=== PATIENT | female | born 1965 | race Caucasian/White ===

== ENCOUNTER → 2016-09-08 | Outpatient (CLI) | payer BC ==
--- NOTE | 2016-09-09 08:35 | MM ---
Reason for exam: screening (asymptomatic). Last mammogram was performed 1 year and 2 months ago. History: Patient is postmenopausal. Physical Findings: A clinical breast exam by your physician is recommended on an annual basis and results should be correlated with mammographic findings. MG Screening Mammo w CAD Bilateral CC and MLO view(s) were taken. Prior study comparison: July 11, 2015, bilateral MG screening mammo w CAD. March 06, 2014, bilateral MG screening mammo w CAD. March 02, 2013, bilateral digital screening mammo w/CAD. There are scattered fibroglandular densities. There is no discrete abnormality. ASSESSMENT: Negative, BI-RAD 1 RECOMMENDATION: Routine screening mammogram of both breasts in 1 year.
== END | disposition home or self-care (01) ==
LOC: RADMAMWWP 13:50
PROVIDERS: ATTEND Internal Medicine
DX: Z12.31 Encounter for screening mammogram for malignant neoplasm of breast (principal)

== ENCOUNTER → 2017-02-12 | Outpatient (CLI) | payer BC ==
--- NOTE | 2017-02-12 15:56 | XR ---
EXAMINATION TYPE: XR finger LT DATE OF EXAM: 02/12/2017 COMPARISON: NONE HISTORY: Pain in the proximal interphalangeal joint after catching injury on a car door yesterday TECHNIQUE: Frontal and lateral radiographs were obtained of the left fifth digit. FINDINGS: There is no evidence of acute fracture or dislocation. Soft tissue swelling is seen circumf erentially of the fifth digit overlying the proximal phalanx and middle phalanx. Osseous mineralizati on is within normal limits. No subcutaneous emphysema. No radiopaque foreign body. IMPRESSION: Soft tissue swelling of the left fifth digit without acute fracture or dislocation.
== END ==
LOC: RADXRYALE 15:29
PROVIDERS: ATTEND Internal Medicine
DX: M79.89 Other specified soft tissue disorders (principal)

== ENCOUNTER → 2017-10-08 | Outpatient (CLI) | payer BC ==
--- NOTE | 2017-10-09 12:06 | MM ---
Reason for exam: screening (asymptomatic). Last mammogram was performed 1 year and 1 month ago. History: Patient is postmenopausal. Physical Findings: A clinical breast exam by your physician is recommended on an annual basis and results should be correlated with mammographic findings. MG Screening Mammo w CAD Bilateral CC and MLO view(s) were taken. Prior study comparison: September 08, 2016, bilateral MG screening mammo w CAD. July 11, 2015, bilateral MG screening mammo w CAD. There are scattered fibroglandular densities. No significant changes when compared with prior studies. ASSESSMENT: Benign, BI-RAD 2 RECOMMENDATION: Routine screening mammogram of both breasts in 1 year.
== END | disposition home or self-care (01) ==
LOC: RADMAMWWP 11:03
PROVIDERS: ATTEND Internal Medicine
DX: Z12.31 Encounter for screening mammogram for malignant neoplasm of breast (principal)
CPT/HCPCS: 77067

== ENCOUNTER 2018-10-08 03:17 | Inpatient (IN) | payer BC ==
[2018-10-08 04:02] LABS: Basophils % (A) 0 %; Eosinophils # (A) 0.1 k/uL (0-0.7); Eosinophils % (A) 1 %; HCT 46.7 % (34.0-46.0); HGB 15.1 gm/dL (11.4-16.0); Lymphocytes # (A) 1.2 k/uL (1.0-4.8); Lymphocytes % (A) 8 %; MCH 26.7 pg (25.0-35.0); MCHC 32.4 g/dL (31.0-37.0); MCV 82.4 fL (80.0-100.0); Mean Platelet Volume 6.5; Monocytes # (A) 0.4 k/uL (0-1.0); Monocytes % (A) 3 %; Neutrophils # (A) 13.6 k/uL (1.3-7.7); Neutrophils % (A) 88 %; Platelet Count 365 k/uL (150-450); RBC 5.67 m/uL (3.80-5.40); RDW 14.2 % (11.5-15.5); WBC 15.4 k/uL (3.8-10.6)
[2018-10-08 04:03] LABS: Appearance,Urine Cloudy (Clear); Bilirubin,Urine Negative (Negative); Blood,Urine Trace (Negative); Color,Urine Yellow; Glucose,Urine (UA) Negative (Negative); Hyaline Casts,Urine 12 /lpf (0-2); Ketones,Urine Negative (Negative); Leukocyte Esterase,Urine Negative (Negative); Mucus,Urine Rare /hpf; Nitrite,Urine Negative (Negative); Protein,Urine 1+ (Negative); RBC,Urine <1 /hpf (0-5); Specific Gravity,Urine 1.019 (1.001-1.035); Squamous Epithelial Cell,Urine 3 /hpf (0-4); WBC,Urine 2 /hpf (0-5)
[2018-10-08 04:13] LABS: ALT 113 U/L (9-52); AST 129 U/L (14-36); Albumin 4.6 g/dL (3.5-5.0); Alkaline Phosphatase 112 U/L (38-126); Anion Gap 12 mmol/L; Blood Urea Nitrogen 14 mg/dL (7-17); Calcium 9.7 mg/dL (8.4-10.2); Carbon Dioxide 24 mmol/L (22-30); Chloride 101 mmol/L (98-107); Glucose 184 mg/dL (74-99); Potassium 4.6 mmol/L (3.5-5.1); Sodium 137 mmol/L (137-145); Total Bilirubin 1.3 mg/dL (0.2-1.3); Total Protein 8.5 g/dL (6.3-8.2)
--- NOTE | 2018-10-08 04:13 | XR ---
EXAM: XR Abdomen, 1 View CLINICAL HISTORY: ITS.REASON XR Reason: abdominal pain TECHNIQUE: Frontal supine view of the abdomen/pelvis. COMPARISON: No relevant prior studies available. FINDINGS: Gastrointestinal tract: Unremarkable. No dilation. Bones/joints: No acute fracture. No dislocation. IMPRESSION: Normal abdominal x-ray.
[2018-10-08] MEDS ORDERED: ONDANSETRON 4 MG/2 ML VIAL IVP STA (04:25)
[2018-10-08] MEDS ORDERED: MORPHINE SULFATE 4 MG/ML SYRINGE IVP STA (04:25)
[2018-10-08] MEDS ORDERED: SODIUM CHLORIDE 0.9% 1,000 ML IV ONE ×2 (04:25→04:44)
--- NOTE | 2018-10-08 04:26 | ED ---
Abdominal Pain HPI - General Chief Complaint: Abdominal Pain Stated Complaint: back/abd pain Time Seen by Provider: 10/08/18 03:44 Source: patient Mode of arrival: ambulatory Limitations: no limitations - History of Present Illness Initial Comments: Hilaria is a pleasant 53-year-old female presents to the emergency department today for evaluation of nausea vomiting abdominal pain. Patient reports that throughout the day today she felt nauseated and unwell however around dinner time she decided that she should try to eat so [facility] and patient reports after eating she developed worsening nausea and had multiple episodes of nonbloody nonbilious emesis. Despite vomiting she continued feel nauseated and was having dry heaving at which time she decided to come the emergency department for evaluation. Patient reports she had a normal bowel movement earlier in the day. She has no history of any GI pathology or previous GI surgeries. No history of bowel obstructions or pancreatitis. - Related Data Home Medications Medication Instructions Recorded Confirmed Oxybutynin Chloride [Oxybutynin 5 mg PO HS 08/06/15 10/08/18 Chloride ER] Aspirin EC [Ecotrin Low Dose] 81 mg PO HS 10/08/18 10/08/18 Citalopram Hydrobromide [CeleXA] 20 mg PO HS 10/08/18 10/08/18 Lisinopril [Zestril] 20 mg PO HS 10/08/18 10/08/18 Magnesium 200 mg PO HS 10/08/18 10/08/18 Allergies Allergy/AdvReac Type Severity Reaction Status Date / Time Tetracyclines Allergy Unknown Verified 10/08/18 06:44 Review of Systems ROS Statement: Those systems with pertinent positive or pertinent negative responses have been documented in the HPI. ROS Other: All systems not noted in ROS Statement are negative. Past Medical History Past Medical History: Hypertension History of Any Multi-Drug Resistant Organisms: None Reported Past Surgical History: Section Additional Past Surgical History / Comment(s): UTERINE ABLATION, D&C, tumor removed from right flank Past Psychological History: Anxiety Smoking Status: Never smoker Past Alcohol Use History: None Reported Past Drug Use History: None Reported General Exam - General Exam Comments Initial Comments: Physical Exam GENERAL: Patient is well-developed and well-nourished. Patient is nontoxic and well-hydrated, looks uncomfortable HENT: Normocephalic, Atraumatic. EYES: PERRL, EOMI PULMONARY: Unlabored respirations. No audible rales rhonchi or wheezing was noted. CARDIOVASCULAR: There is a regular rate and rhythm without any murmurs gallops or rubs. ABDOMEN: Soft and nontender with hypoactive bowel sounds. Non-peritoneal SKIN: Skin is clear with no lesions or rashes and otherwise unremarkable. : Deferred NEUROLOGIC: Patient is alert and oriented x3. Moving all extremities spontaneously MUSCULOSKELETAL: Normal extremities with adequate strength and full range of motion. No lower extremity swelling or edema. No calf tenderness. PSYCHIATRIC: Normal psychiatric evaluation. Limitations: no limitations Limitations: no limitations Course Vital Signs 10/08/18 10/08/18 03:25 07:21 Temperature 98.1 F Pulse Rate 88 84 Respiratory 20 16 Rate Blood Pressure 138/94 171/84 O2 Sat by Pulse 97 95 Oximetry Medical Decision Making - Medical Decision Making Patient was seen and evaluated history was obtained from the patient and at bedside Patient with full day of nausea and development of nonbloody nonbilious emesis after eating fast food On initial evaluation the patient appears uncomfortable however she reports she's thirsty and would like to try some ice chips and water Labs imaging fluids Zofran and morphine were ordered She declined morphine seen that it makes her hallucinate would prefer something more gentle like aspirin Labs resulted with findings considering for acute pancreatitis these results were discussed with the patient I encouraged her to take Dilaudid for pain management and advised her that she will be admitted to the hospital for this after further imaging CT scan concerning for acute pancreatitis with no definitive dilatation of the common bile duct although the gallbladder is full of stones Ultrasound was completed, the time of admission results with ultrasound were still pending though, bile duct measurements appeared within normal limits admitted for acute pancreatitis with consults to gastroenterology placed. - Lab Data Result diagrams: 10/08/18 03:52 10/08/18 03:52 Lab Results 10/08/18 10/08/18 10/08/18 Range/Units 03:46 03:52 03:52 WBC 15.4 H (3.8-10.6) k/uL RBC 5.67 H (3.80-5.40) m/uL Hgb 15.1 (11.4-16.0) gm/dL Hct 46.7 H (34.0-46.0) % MCV 82.4 (80.0-100.0) fL MCH 26.7 (25.0-35.0) pg MCHC 32.4 (31.0-37.0) g/dL RDW 14.2 (11.5-15.5) % Plt Count 365 (150-450) k/uL Neutrophils % 88 % Lymphocytes % 8 % Monocytes % 3 % Eosinophils % 1 % Basophils % 0 % Neutrophils # 13.6 H (1.3-7.7) k/uL Lymphocytes # 1.2 (1.0-4.8) k/uL Monocytes # 0.4 (0-1.0) k/uL Eosinophils # 0.1 (0-0.7) k/uL Basophils # 0.0 (0-0.2) k/uL Sodium 137 (137-145) mmol/L Potassium 4.6 (3.5-5.1) mmol/L Chloride 101 (98-107) mmol/L Carbon Dioxide 24 (22-30) mmol/L Anion Gap 12 mmol/L BUN 14 (7-17) mg/dL Creatinine 0.68 (0.52-1.04) mg/dL Est GFR (CKD-EPI)AfAm >90 (>60 ml/min/1.73 sqM) Est GFR (CKD-EPI)NonAf >90 (>60 ml/min/1.73 sqM) Glucose 184 H (74-99) mg/dL Calcium 9.7 (8.4-10.2) mg/dL Total Bilirubin 1.3 (0.2-1.3) mg/dL AST 129 H (14-36) U/L ALT 113 H (9-52) U/L Alkaline Phosphatase 112 (38-126) U/L Total Protein 8.5 H (6.3-8.2) g/dL Albumin 4.6 (3.5-5.0) g/dL Amylase 1933 H* (30-110) U/L Lipase >04933 H (23-300) U/L Urine Color Yellow Urine Appearance Cloudy H (Clear) Urine pH 5.0 (5.0-8.0) Ur Specific [place] 1.019 (1.001-1.035) Urine Protein 1+ H (Negative) Urine Glucose (UA) Negative (Negative) Urine Ketones Negative (Negative) Urine Blood Trace H (Negative) Urine Nitrite Negative (Negative) Urine Bilirubin Negative (Negative) Urine Urobilinogen 3.0 (<2.0) mg/dL Ur Leukocyte Esterase Negative (Negative) Urine RBC <1 (0-5) /hpf Urine WBC 2 (0-5) /hpf Ur Squamous Epith Cells 3 (0-4) /hpf Hyaline Casts 12 H (0-2) /lpf Urine Mucus Rare H (None) /hpf Disposition Clinical Impression: Acute pancreatitis Disposition: ADMITTED IP TO THIS HOSP Condition: Serious Is patient prescribed a controlled substance at d/c from ED?: No Referrals: Raysa Dotson MD [Primary Care Provider] - 1-2 days
[2018-10-08 04:38] LABS: Amylase 1933 U/L (30-110); Lipase >20000 U/L (23-300)
--- NOTE | 2018-10-08 06:11 | CT ---
EXAM: CT Abdomen and Pelvis With Intravenous Contrast CLINICAL HISTORY: ITS.REASON CT Reason: Pain, pancreatitis TECHNIQUE: Axial computed tomography images of the abdomen and pelvis with intravenous contrast. Pancreatitis protocol used. DLP is 2165.2 mGy-cm. This CT exam was performed using one or more of the following dose reduction techniques: automated exposure control, adjustment of the mA and/or kV according to patient size, and/or use of iterative reconstruction technique. COMPARISON: Plain film abdomen same date. No other priors. FINDINGS: Arterial phase imaging of the abdomen along with portal venous imaging of the abdomen and pelvis. Suboptimal arterial bolus on arterial phase imaging. Atelectasis. Possible right lower lobe nodule measuring about 6 mm size versus focus of atelectasis and/or scar image . Small hiatal hernia. There is some fluid in the esophagus which may represent reflux. There is peripancreatic infiltration/fluid with fluid layering over retroperitoneum compatible with acute pancreatitis. Cholelithiasis. No calcified choledocholithiasis. No pseudocyst or evidence for pancreatic necrosis. Hepatomegaly with suspected steatosis. Borderline splenomegaly with spleen about 13 cm on axials. 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 There is some hypodensity in region of lower uterine segment extending to region of cervix/superior vaginal cuff. May represent fluid in the endometrial/endocervical canal. Right adnexal cyst measuring about 2.4 cm. Smaller suspected left ovarian follicles. No evidence for appendicitis. No bowel obstruction. Portions of bowel underdistended limiting evaluation for wall thickening. Diverticulosis. No diverticulitis. Possible reactive mural thickening of bowel adjacent to the pancreas, example portions stomach and duodenum. Fat-containing ventral and umbilical hernias. Osseous degenerative changes. IMPRESSION: Findings compatible with acute pancreatitis. Cholelithiasis and other findings, as discussed above.
[2018-10-08] MEDS ORDERED: HYDROmorphone 0.5 MG/0.5 ML SYRINGE IVP STA (06:28)
[2018-10-08] MEDS ORDERED: NALOXONE 0.4 MG/ML 1 ML VIAL IV PRN (06:29)
[2018-10-08] MEDS ORDERED: HYDROmorphone 0.5 MG/0.5 ML SYRINGE IVP PRN (06:29)
[2018-10-08] MEDS: SODIUM CHLORIDE 0.9% 1,000 ML IV SCH ×4 (06:36→22:58)
--- NOTE | 2018-10-08 08:13 | US ---
EXAMINATION TYPE: US gallbladder DATE OF EXAM: 10/08/2018 COMPARISON: NONE CLINICAL HISTORY: Pain, transaminitis, pancreatitis. abd pain with vomiting, patient states these sym ptoms have happened over the past few years EXAM MEASUREMENTS: Liver Length: 18.3 cm Gallbladder Wall: 0.3 cm CBD: 0.5 cm Right Kidney: 9.7 x 4.9 x 4.2 cm *limited exam due to habitus and bowel gas Pancreas: not seen due to reasons stated above Liver: difficult to penetrate, upper limits of normal for size, intercostal views only Gallbladder: multiple stones seen, unable to assess mobility of them, wall borderline thick Evidence for sonographic Smith's sign: yes CBD: limited views appear wnl Right Kidney: limited views appear wnl IMPRESSION: Suboptimal exam due to patient body habitus and overlying bowel gas. 1. Gallbladder appears filled with gallstones although mobility of the gallstones is not well appreci ated. No dilated common bile duct or discrete pericholecystic fluid to suggest acute cholecystitis. H owever the patient describes a positive Smith's sign. Correlate with serum laboratory values. 2. Sonographic findings suggest moderate degree hepatic steatosis. 3. In this patient with known pancreatitis the pancreas is obscured. If there is further concern for sequela of pancreatitis CT could be performed.
[2018-10-08] MEDS: ONDANSETRON 4 MG/2 ML VIAL IVP PRN ×3 (10:50→22:57)
[2018-10-08 13:14] LABS: Glucose,Whole Blood 121 mg/dL (75-99)
[2018-10-08] MEDS: PANTOPRAZOLE 40 MG/10 ML VIAL IVP SCH (13:18)
--- NOTE | 2018-10-08 15:42 | P.HPIM ---
History of Present Illness 53-year-old pleasant female came in with complains of epigastric abdominal pain radiating to the back severe 10/10 in severity associated with nausea vomiting multiple episodes. Patient is in found to have highly elevated lipase and amylase. Patient has nonbilious emesis. Patient also has cholelithiasis without any evidence of cholecystitis patient pain is better now with pain going down to 6/10 in severity patient's pain is a sharp in nature. Patient does have elevated liver enzymes although there is no evidence of cortical metastasis an ultrasound or CAT scan. She denied any significant alcohol history Review of Systems REVIEW OF SYSTEMS: CONSTITUTIONAL: No fever, no malaise, no fatigue. HEENT: No recent visual problems or hearing problems. Denied any sore throat. CARDIOVASCULAR: No chest pain, orthopnea, PND, no palpitations, no syncope. PULMONARY: No shortness of breath, no cough, no hemoptysis. GASTROINTESTINAL: As mentioned in HPI NEUROLOGICAL: No headaches, no weakness, no numbness. HEMATOLOGICAL: Denies any bleeding or petechiae. GENITOURINARY: Denies any burning micturition, frequency, or urgency. MUSCULOSKELETAL/RHEUMATOLOGICAL: Denies any joint pain, swelling, or any muscle pain. ENDOCRINE: Denies any polyuria or polydipsia. The rest of the 14-point review of systems is negative. Past Medical History Past Medical History: Hypertension Additional Past Medical History / Comment(s): Multiple bilateral ear infections, bilateral tinnitis, anemia, migraines History of Any Multi-Drug Resistant Organisms: None Reported Past Surgical History: Section, Tubal Ligation, Uterine Ablation Additional Past Surgical History / Comment(s): D&C'S, lipoma removed from right flank Past Anesthesia/Blood Transfusion Reactions: No Reported Reaction, Motion Sickness Smoking Status: Never smoker - Past Family History Father Family Medical History: Cancer Additional Family Medical History / Comment(s): Father is . He had esophageal cancer. Mother Family Medical History: Myocardial Infarction ([place]) Additional Family Medical History / Comment(s): Mother was a heavy smoker. She from a [place] at the age of 66yrs. Medications and Allergies Home Medications Medication Instructions Recorded Confirmed Type Oxybutynin Chloride [Oxybutynin 5 mg PO HS 08/06/15 10/08/18 History Chloride ER] Aspirin EC [Ecotrin Low Dose] 81 mg PO HS 10/08/18 10/08/18 History Citalopram Hydrobromide [CeleXA] 20 mg PO HS 10/08/18 10/08/18 History Lisinopril [Zestril] 20 mg PO HS 10/08/18 10/08/18 History Magnesium 200 mg PO HS 10/08/18 10/08/18 History Allergies Allergy/AdvReac Type Severity Reaction Status Date / Time Tetracyclines Allergy Unknown Verified 10/08/18 06:44 Physical Exam Vitals: Vital Signs Temp Pulse Resp BP Pulse Ox 10/08/18 07:21 84 16 171/84 95 10/08/18 03:25 98.1 F 88 20 138/94 97 Intake and Output 10/08/18 10/08/18 10/08/18 06:59 14:59 22:59 Intake Total 1000 Balance 1000 Intake: Intake, IV Titration 1000 Amount Sodium Chloride 0.9% 1, 1000 000 ml @ 125 mls/hr IV . Q8H [facility] Rx#:[id number] Other: Weight 127.006 kg PHYSICAL EXAMINATION: GENERAL: The patient is alert and oriented x3, not in any acute distress. Well developed, well nourished. HEENT: Pupils are round and equally reacting to light. EOMI. No scleral icterus. No conjunctival pallor. Normocephalic, atraumatic. No pharyngeal erythema. No thyromegaly. CARDIOVASCULAR: S1 and S2 present. No murmurs, rubs, or gallops. PULMONARY: Chest is clear to auscultation, no wheezing or crackles. ABDOMEN: Epigastric abdominal tenderness mild no significant right upper quadrant tenderness did not believe patient has Smith's sign that is positive MUSCULOSKELETAL: No joint swelling or deformity. EXTREMITIES: No cyanosis, clubbing, or pedal edema. NEUROLOGICAL: Gross neurological examination did not reveal any focal deficits. SKIN: No rashes. Results CBC & Chem 7: 10/08/18 03:52 10/08/18 03:52 Labs: Abnormal Lab Results - Last 24 Hours (Table) 10/08/18 10/08/18 10/08/18 Range/Units 03:46 03:52 03:52 WBC 15.4 H (3.8-10.6) k/uL RBC 5.67 H (3.80-5.40) m/uL Hct 46.7 H (34.0-46.0) % Neutrophils # 13.6 H (1.3-7.7) k/uL Glucose 184 H (74-99) mg/dL POC Glucose (mg/dL) (75-99) mg/dL AST 129 H (14-36) U/L ALT 113 H (9-52) U/L Total Protein 8.5 H (6.3-8.2) g/dL Amylase 1933 H* (30-110) U/L Lipase >92405 H (23-300) U/L Urine Appearance Cloudy H (Clear) Urine Protein 1+ H (Negative) Urine Blood Trace H (Negative) Hyaline Casts 12 H (0-2) /lpf Urine Mucus Rare H (None) /hpf 10/08/18 Range/Units 13:11 WBC (3.8-10.6) k/uL RBC (3.80-5.40) m/uL Hct (34.0-46.0) % Neutrophils # (1.3-7.7) k/uL Glucose (74-99) mg/dL POC Glucose (mg/dL) 121 H (75-99) mg/dL AST (14-36) U/L ALT (9-52) U/L Total Protein (6.3-8.2) g/dL Amylase (30-110) U/L Lipase (23-300) U/L Urine Appearance (Clear) Urine Protein (Negative) Urine Blood (Negative) Hyaline Casts (0-2) /lpf Urine Mucus (None) /hpf Thrombosis Risk Factor Assmnt - Choose All That Apply Any of the Below Risk Factors Present?: Yes Each Factor Represents 1 point: Age 41-60 years, Obesity (BMI >25) Other Risk Factors: No Other congenital or acquired thrombophilia - If yes, enter type in comment: No Thrombosis Risk Factor Assessment Total Risk Factor Score: 2 Thrombosis Risk Factor Assessment Level: Low Risk Assessment and Plan Plan: -Gallstone pancreatitis: Patient will be nothing by mouth IV fluids will be continued but will cut down from 200-1 25 mL/h. General surgery was consulted will need the cholecystectomy once his pancreatitis improves. Because of elevated liver enzymes gastro-enterology was consulted next and have an elevated liver enzymes probably secondary to passed gallstones there is no evidence of to choledicholithiasis, repeat liver enzymes tomorrow. -Elevated liver enzymes due to above-mentioned reasons -Leukocytosis secondary to pancreatitis -Hypertension -anxiety and depression Patient will need pharmacologic GI and DVT prophylaxis
[2018-10-08] MEDS: HEPARIN SODIUM,PORCINE 5,000 UNIT/ML 1 ML VIAL SQ SCH ×2 (17:01→22:57)
[2018-10-08] MEDS: TEMAZEPAM 15 MG CAP PO PRN (20:02)
[2018-10-08] MEDS: LISINOPRIL 20 MG TAB PO SCH (20:12)
[2018-10-08] MEDS: OXYBUTYNIN XL 5 MG TAB.ER.24 PO SCH (20:12)
[2018-10-08] MEDS: CITALOPRAM HYDROBROMIDE 20 MG TAB PO SCH (20:12)
[2018-10-08 21:32] LABS: Glucose,Whole Blood 104 mg/dL (75-99)
[2018-10-09] MEDS: SODIUM CHLORIDE 0.9% 1,000 ML IV SCH ×4 (05:36→22:54)
[2018-10-09] MEDS: ONDANSETRON 4 MG/2 ML VIAL IVP PRN ×3 (05:38→18:30)
[2018-10-09] MEDS: HYDROmorphone 0.5 MG/0.5 ML SYRINGE IVP PRN ×7 (05:38→22:53)
[2018-10-09 07:05] LABS: Glucose,Whole Blood 121 mg/dL (75-99)
[2018-10-09] MEDS: HEPARIN SODIUM,PORCINE 5,000 UNIT/ML 1 ML VIAL SQ SCH ×3 (08:28→22:53)
[2018-10-09] MEDS: PANTOPRAZOLE 40 MG/10 ML VIAL IVP SCH (08:28)
[2018-10-09 08:46] LABS: HCT 40.7 % (34.0-46.0); HGB 13.2 gm/dL (11.4-16.0); MCH 26.7 pg (25.0-35.0); MCHC 32.6 g/dL (31.0-37.0); Mean Platelet Volume 6.8; Platelet Count 383 k/uL (150-450); RBC 4.96 m/uL (3.80-5.40); RDW 14.4 % (11.5-15.5); WBC 18.5 k/uL (3.8-10.6)
[2018-10-09 08:58] LABS: ALT 91 U/L (9-52); AST 46 U/L (14-36); Albumin 3.8 g/dL (3.5-5.0); Alkaline Phosphatase 78 U/L (38-126); Anion Gap 8 mmol/L; Blood Urea Nitrogen 7 mg/dL (7-17); Calcium 8.8 mg/dL (8.4-10.2); Carbon Dioxide 23 mmol/L (22-30); Chloride 106 mmol/L (98-107); Glucose 119 mg/dL (74-99); Lipase 1112 U/L (23-300); Sodium 137 mmol/L (137-145); Total Protein 7.3 g/dL (6.3-8.2)
[2018-10-09 11:29] LABS: Glucose,Whole Blood 104 mg/dL (75-99)
--- NOTE | 2018-10-09 14:15 | P.GSCN ---
History of Present Illness Consult date: 10/09/18 History of present illness: 53-year-old female presented to the emergency department with complaints of abdominal pain that began over the 24 hours prior to her arrival. She describes the pain in his a burning sensation in her epigastrium and upper back. She also complains of pain on the right side of her abdomen. She also complains of abdominal distention. She was having nausea and emesis episodes previously, but no longer is having any nausea. She denies having any flatus or bowel movements since her admission. She denies having an episode like this previously. On workup in the emergency department, the patient was found to have gallstones and an extremely elevated lipase along with peripancreatic edema. The patient denies any significant alcohol use. She has no additional complaints at this time. She states her only previous abdominal surgery are C-sections. Review of Systems All systems: negative Past Medical History Past Medical History: Hypertension Additional Past Medical History / Comment(s): Multiple bilateral ear infections, bilateral tinnitis, anemia, migraines History of Any Multi-Drug Resistant Organisms: None Reported Past Surgical History: Section, Tubal Ligation, Uterine Ablation Additional Past Surgical History / Comment(s): D&C'S, lipoma removed from right flank Past Anesthesia/Blood Transfusion Reactions: No Reported Reaction, Motion Sickness Smoking Status: Never smoker - Past Family History Father Family Medical History: Cancer Additional Family Medical History / Comment(s): Father is . He had esophageal cancer. Mother Family Medical History: Myocardial Infarction ([place]) Additional Family Medical History / Comment(s): Mother was a heavy smoker. She from a [place] at the age of 66yrs. Medications and Allergies Home Medications Medication Instructions Recorded Confirmed Type Oxybutynin Chloride [Oxybutynin 5 mg PO HS 08/06/15 10/08/18 History Chloride ER] Aspirin EC [Ecotrin Low Dose] 81 mg PO HS 10/08/18 10/08/18 History Citalopram Hydrobromide [CeleXA] 20 mg PO HS 10/08/18 10/08/18 History Lisinopril [Zestril] 20 mg PO HS 10/08/18 10/08/18 History Magnesium 200 mg PO HS 10/08/18 10/08/18 History Allergies Allergy/AdvReac Type Severity Reaction Status Date / Time Tetracyclines Allergy Unknown Verified 10/08/18 06:44 Surgical - Exam Osteopathic Statement: *. No significant issues noted on an osteopathic structural exam other than those noted in the History and Physical/Consult. Vital Signs Temp Pulse Resp BP Pulse Ox 98.1 F 88 20 138/94 97 10/08/18 03:25 10/08/18 03:25 10/08/18 03:25 10/08/18 03:25 10/08/18 03:25 - General well nourished, no distress - Eyes PERRL - ENT normal mucosa - Neck trachea midline - Respiratory normal respiratory effort - Abdomen Soft, tenderness to the epigastrium and right upper quadrant, moderate distention, no rebound, no guarding - Psychiatric oriented to time, oriented to person, oriented to place Results - Labs 10/09/18 08:31 10/09/18 08:31 Abnormal Lab Results - Last 24 Hours (Table) 10/08/18 10/09/18 10/09/18 Range/Units 21:32 07:02 08:31 WBC 18.5 H (3.8-10.6) k/uL Creatinine (0.52-1.04) mg/dL Glucose (74-99) mg/dL POC Glucose (mg/dL) 104 H 121 H (75-99) mg/dL AST (14-36) U/L ALT (9-52) U/L Lipase (23-300) U/L 10/09/18 10/09/18 Range/Units 08:31 11:27 WBC (3.8-10.6) k/uL Creatinine 0.49 L (0.52-1.04) mg/dL Glucose 119 H (74-99) mg/dL POC Glucose (mg/dL) 104 H (75-99) mg/dL AST 46 H (14-36) U/L ALT 91 H (9-52) U/L Lipase 1112 H (23-300) U/L Diabetes panel 10/09/18 Range/Units 08:31 Sodium 137 (137-145) mmol/L Potassium 4.0 (3.5-5.1) mmol/L Chloride 106 (98-107) mmol/L Carbon Dioxide 23 (22-30) mmol/L BUN 7 (7-17) mg/dL Creatinine 0.49 L (0.52-1.04) mg/dL Glucose 119 H (74-99) mg/dL Calcium 8.8 (8.4-10.2) mg/dL AST 46 H (14-36) U/L ALT 91 H (9-52) U/L Alkaline Phosphatase 78 (38-126) U/L Total Protein 7.3 (6.3-8.2) g/dL Albumin 3.8 (3.5-5.0) g/dL Calcium panel 10/09/18 Range/Units 08:31 Calcium 8.8 (8.4-10.2) mg/dL Albumin 3.8 (3.5-5.0) g/dL Pituitary panel 10/09/18 Range/Units 08:31 Sodium 137 (137-145) mmol/L Potassium 4.0 (3.5-5.1) mmol/L Chloride 106 (98-107) mmol/L Carbon Dioxide 23 (22-30) mmol/L BUN 7 (7-17) mg/dL Creatinine 0.49 L (0.52-1.04) mg/dL Glucose 119 H (74-99) mg/dL Calcium 8.8 (8.4-10.2) mg/dL Adrenal panel 10/09/18 Range/Units 08:31 Sodium 137 (137-145) mmol/L Potassium 4.0 (3.5-5.1) mmol/L Chloride 106 (98-107) mmol/L Carbon Dioxide 23 (22-30) mmol/L BUN 7 (7-17) mg/dL Creatinine 0.49 L (0.52-1.04) mg/dL Glucose 119 H (74-99) mg/dL Calcium 8.8 (8.4-10.2) mg/dL Total Bilirubin 1.0 (0.2-1.3) mg/dL AST 46 H (14-36) U/L ALT 91 H (9-52) U/L Alkaline Phosphatase 78 (38-126) U/L Total Protein 7.3 (6.3-8.2) g/dL Albumin 3.8 (3.5-5.0) g/dL Assessment and Plan (1) Acute pancreatitis Narrative/Plan: 53-year-old female with gallstone pancreatitis - Patient did have an increase in leukocytosis over the past day. We'll begin antibiotics for coverage for possible acute cholecystitis. - Lipase is still continued to be elevated. Continue to provide the patient with IV fluids for pancreatitis. - Patient will require cholecystectomy during this admission. It appears that she still is having pancreatitis symptoms and we will continue to treat pancreatitis prior to cholecystectomy. - Keep the patient nothing by mouth Current Visit: Yes Status: Acute Code(s): K85.90 - ACUTE PANCREATITIS WITHOUT NECROSIS OR INFECTION, UNSP SNOMED Code(s): 789601195
--- NOTE | 2018-10-09 15:46 | P.PN ---
Subjective 53-year-old admitted for gall stone pancreatitis patient can use to have symptoms of nausea and continues to have severe abdominal pain. Her lipase has come down her liver enzymes have come down gastroenterology and general surgery evaluate the patient patient was started on Unasyn for possibility of acute cholecystitis cannot be ruled out. Patient will remain nothing by mouth on IV fluids and above-mentioned antibiotics. Patient did have worsening leukocytosis Constitutional: Denied any fatigue denied any fever. Cardio vascular: denied any chest pain, palpitations Gastrointestinal as mentioned in HPI Pulmonary: Denied any shortness of breath cough Neurologic denied any new focal deficits All inpatient medications were reviewed and appropriate changes in these medications as dictated in the interval history and assessment and plan. Objective - Vital Signs Vital signs: Vital Signs Temp 99.3 F 10/09/18 13:39 Pulse 99 10/09/18 13:39 Resp 16 10/09/18 13:39 BP 167/95 10/09/18 13:39 Pulse Ox 95 10/09/18 13:39 Intake & Output 10/08/18 10/09/18 10/09/18 18:59 06:59 18:59 Intake Total 1000 Balance 1000 Intake: Intake, IV Titration 1000 Amount Sodium Chloride 0.9% 1, 1000 000 ml @ 150 mls/hr IV . Q6H40M [facility] Rx#:[id number] Other: Voiding Method Toilet Toilet # Voids 3 - Exam PHYSICAL EXAMINATION: GENERAL: The patient is alert and oriented x3, not in any acute distress. Well developed, well nourished. HEENT: Pupils are round and equally reacting to light. EOMI. No scleral icterus. No conjunctival pallor. Normocephalic, atraumatic. No pharyngeal erythema. No thyromegaly. CARDIOVASCULAR: S1 and S2 present. No murmurs, rubs, or gallops. PULMONARY: Chest is clear to auscultation, no wheezing or crackles. ABDOMEN: Epigastric abdominal tenderness mild no significant right upper quadrant tenderness did not believe patient has Smith's sign that is positive MUSCULOSKELETAL: No joint swelling or deformity. EXTREMITIES: No cyanosis, clubbing, or pedal edema. NEUROLOGICAL: Gross neurological examination did not reveal any focal deficits. SKIN: No rashes. - Labs CBC & Chem 7: 10/09/18 08:31 10/09/18 08:31 Labs: Abnormal Lab Results - Last 24 Hours (Table) 10/08/18 10/09/18 10/09/18 Range/Units 21:32 07:02 08:31 WBC 18.5 H (3.8-10.6) k/uL Creatinine (0.52-1.04) mg/dL Glucose (74-99) mg/dL POC Glucose (mg/dL) 104 H 121 H (75-99) mg/dL AST (14-36) U/L ALT (9-52) U/L Lipase (23-300) U/L 10/09/18 10/09/18 Range/Units 08:31 11:27 WBC (3.8-10.6) k/uL Creatinine 0.49 L (0.52-1.04) mg/dL Glucose 119 H (74-99) mg/dL POC Glucose (mg/dL) 104 H (75-99) mg/dL AST 46 H (14-36) U/L ALT 91 H (9-52) U/L Lipase 1112 H (23-300) U/L Assessment and Plan Plan: -Gallstone pancreatitis: Patient will be nothing by mouth IV fluids will be continued but will cut down from 200-1 25 mL/h. General surgery was consulted will need the cholecystectomy once his pancreatitis improves. Because of elevated liver enzymes gastro-enterology was consulted next and have an elevated liver enzymes probably secondary to passed gallstones there is no evidence of to choledicholithiasis, repeat liver enzymes tomorrow. -Possibility of acute cholecystitis cannot be ruled out because of which patient was started on Unasyn -Leukocytosis secondary to acute pancreatitis and possibility of cholecystitis -Elevated liver enzymes due to above-mentioned reasons, improved compared to yesterday -Leukocytosis secondary to pancreatitis -Hypertension -anxiety and depression Patient will need pharmacologic GI and DVT prophylaxis
[2018-10-09 16:59] LABS: Glucose,Whole Blood 93 mg/dL (75-99)
[2018-10-09] MEDS: AMPICILLIN-SULBACTAM 3 GM in SODIUM CHLORIDE 0.9% 100 ML IVPB SCH ×2 (17:23→22:53)
--- NOTE | 2018-10-09 17:44 | P.CONS ---
History of Present Illness - Reason for Consult Consult date: 10/09/18 Pancreatitis Requesting physician: Leticia Jordan - Chief Complaint Andominal pain - History of Present Illness 53-year-old female with medical history significant for tinnitus, hypertension and prior ear infection at 4 presents to the hospital with complaints including nausea, vomiting and abdominal pain. The patient reports waking up prior to admission not feeling well. The nausea continued to progress and after eating the patient reports multiple episodes of nonbloody nonbilious emesis. She reports abdominal pain which is described as diffuse across the abdomen 6 out of 10 in intensity and sharp in quality. She reports radiation of the pain into her back. She does feel that she had prior episodes of intermittent right upper quadrant Tong pain prior to presentation. Laboratory evaluation is significant for a WBC 18.5, hemoglobin 13.2, platelet count 383,000, lipase 1112 down from over 20,000, amylase 1933 on presentation. Evaluation with computed tomography scan was consistent with acute pancreatitis, uncomplicated. Ultrasound of the abdomen showed gallstones with no CBD dilation and hepatic steatosis. Review of Systems REVIEW OF SYSTEMS: CONSTITUTIONAL: Denies any fevers, chills, weight change or fatigue. CARDIOVASCULAR: Denies any chest pain, palpitations high or low blood pressures RESPIRATORY: Denies any shortness of breath, hemoptysis or cough. GENITOURINARY: No dysuria or hematuria. MUSCULOSKELETAL: No weakness reported. SKIN: Denies any new rashes or lesions, jaundice or pallor. PSYCHIATRIC: Denies any depression or anxiety. NEUROLOGY: Denies headache, denies any new focal deficits, history of tinnitus. EARS/NOSE/THROAT: No recent hearing change, congestion, nasal discharge or sore throat, history of tinnitus. EYES: No pain in eyes, discharge or change in vision. GASTROINTESTINAL: As per HPI. Past Medical History Past Medical History: Hypertension Additional Past Medical History / Comment(s): Multiple bilateral ear infections, bilateral tinnitis, anemia, migraines History of Any Multi-Drug Resistant Organisms: None Reported Past Surgical History: Section, Tubal Ligation, Uterine Ablation Additional Past Surgical History / Comment(s): D&C'S, lipoma removed from right flank Past Anesthesia/Blood Transfusion Reactions: No Reported Reaction, Motion Sickness Smoking Status: Never smoker - Past Family History Father Family Medical History: Cancer Additional Family Medical History / Comment(s): Father is . He had esophageal cancer. Mother Family Medical History: Myocardial Infarction ([place]) Additional Family Medical History / Comment(s): Mother was a heavy smoker. She from a [place] at the age of 66yrs. Medications and Allergies Home Medications Medication Instructions Recorded Confirmed Type Oxybutynin Chloride [Oxybutynin 5 mg PO HS 08/06/15 10/08/18 History Chloride ER] Aspirin EC [Ecotrin Low Dose] 81 mg PO HS 10/08/18 10/08/18 History Citalopram Hydrobromide [CeleXA] 20 mg PO HS 10/08/18 10/08/18 History Lisinopril [Zestril] 20 mg PO HS 10/08/18 10/08/18 History Magnesium 200 mg PO HS 10/08/18 10/08/18 History Allergies Allergy/AdvReac Type Severity Reaction Status Date / Time Tetracyclines Allergy Unknown Verified 10/08/18 06:44 Physical Exam Vitals: Vital Signs Temp Pulse Pulse Resp BP Pulse Ox 10/09/18 13:39 99.3 F 99 16 167/95 95 10/09/18 06:29 98.8 F 97 18 159/87 93 L 10/08/18 20:14 97.8 F 90 18 144/94 93 L 10/08/18 19:46 16 Intake and Output 10/09/18 10/09/18 10/09/18 06:59 14:59 22:59 Other: # Voids 3 3 # Bowel Movements 0 On physical examination, patient appears comfortable in no apparent distress. HEAD: Normocephalic, atraumatic. EYES: No scleral icterus. No conjunctival injection. MOUTH: No lesions, tongue midline. NECK: Trachea midline, no gross abnormalities. CHEST: Clear to auscultation with no wheezing or rhonchi appreciated. HEART: Regular rate and rhythm. ABDOMEN: Soft, obese, tender to palpation. Bowel sounds are positive. No organomegaly. No guarding or rigidity. EXTREMITIES: No pedal edema. SKIN: No rashes, no jaundice. NEUROLOGIC: Alert and oriented x3. No focal deficits. Results CBC & Chem 7: 10/09/18 08:31 10/09/18 08:31 Labs: Abnormal Lab Results - Last 24 Hours (Table) 10/08/18 10/09/18 10/09/18 Range/Units 21:32 07:02 08:31 WBC 18.5 H (3.8-10.6) k/uL Creatinine (0.52-1.04) mg/dL Glucose (74-99) mg/dL POC Glucose (mg/dL) 104 H 121 H (75-99) mg/dL AST (14-36) U/L ALT (9-52) U/L Lipase (23-300) U/L 10/09/18 10/09/18 Range/Units 08:31 11:27 WBC (3.8-10.6) k/uL Creatinine 0.49 L (0.52-1.04) mg/dL Glucose 119 H (74-99) mg/dL POC Glucose (mg/dL) 104 H (75-99) mg/dL AST 46 H (14-36) U/L ALT 91 H (9-52) U/L Lipase 1112 H (23-300) U/L CT scan - abdomen: report reviewed (Computed tomography scan of the abdomen with no biliary dilation, but cholelithiasis and hepatic steatosis noted.) Assessment and Plan (1) Acute pancreatitis Narrative/Plan: Acute uncomplicated pancreatitis, with patient presenting with symptoms of abdominal pain, nausea and vomiting. Some improvement with pain control and IV fluid hydration since presentation. Lipase 1112 from greater than 20,000. Computed tomography scan significant for". Pancreatitis with ultrasound of the abdomen showing cholelithiasis without any biliary ductal dilation. Suspicion is for gallstone pancreatitis with choledocholithiasis less likely in the setting of normal total bilirubin of 1, alkaline phosphatase 78, AST 46 and ALP 91. Current Visit: Yes Status: Acute Code(s): K85.90 - ACUTE PANCREATITIS WITHOUT NECROSIS OR INFECTION, UNSP SNOMED Code(s): 004353068 Plan: Supportive care Nothing by mouth, advance to low-fat diet as tolerated Appreciate surgical recommendations Plan is for cholecystectomy when patient's condition is improved Continue IV fluid hydration Continue pain control Encourage ambulation as tolerated Continue to monitor labs Given increase in leukocytosis antibiotic coverage has been added for possible cholecystitis No plans for ERCP at this time Thank you for allowing us dysphagia in the care of the patient we will continue to follow
[2018-10-09] MEDS: ALPRAZolam 0.25 MG TAB PO PRN (18:30)
[2018-10-09] MEDS: OXYBUTYNIN XL 5 MG TAB.ER.24 PO SCH (20:08)
[2018-10-09] MEDS: LISINOPRIL 20 MG TAB PO SCH (20:08)
[2018-10-09] MEDS: CITALOPRAM HYDROBROMIDE 20 MG TAB PO SCH (20:08)
[2018-10-09 20:33] LABS: Glucose,Whole Blood 99 mg/dL (75-99)
[2018-10-10] MEDS: HYDROmorphone 0.5 MG/0.5 ML SYRINGE IVP PRN ×9 (01:40→22:16)
[2018-10-10 07:03] LABS: Glucose,Whole Blood 101 mg/dL (75-99)
[2018-10-10] MEDS: ONDANSETRON 4 MG/2 ML VIAL IVP PRN ×3 (08:05→20:08)
[2018-10-10] MEDS: PANTOPRAZOLE 40 MG/10 ML VIAL IVP SCH (08:05)
[2018-10-10] MEDS: SODIUM CHLORIDE 0.9% 1,000 ML IV SCH ×3 (08:06→18:46)
[2018-10-10] MEDS: HEPARIN SODIUM,PORCINE 5,000 UNIT/ML 1 ML VIAL SQ SCH ×3 (08:06→23:46)
[2018-10-10] MEDS: AMPICILLIN-SULBACTAM 3 GM in SODIUM CHLORIDE 0.9% 100 ML IVPB SCH ×3 (09:41→23:47)
--- NOTE | 2018-10-10 10:37 | P.PN ---
Subjective Progress Note Date: 10/10/18 Patient seen and examined at bedside. States her abdominal pain is improving. Complains of back pain. States she is nauseous and had multiple emesis episodes overnight. Objective - Vital Signs Vital signs: Vital Signs Temp 99.0 F 10/10/18 05:26 Pulse 93 10/10/18 05:26 Resp 18 10/10/18 05:26 BP 171/96 10/10/18 05:26 Pulse Ox 97 10/10/18 05:26 Intake & Output 10/09/18 10/10/18 10/10/18 18:59 06:59 18:59 Other: # Voids 3 2 # Bowel Movements 0 - Constitutional General appearance: Present: cooperative, no acute distress - EENT Eyes: Present: PERRLA - Respiratory Details: No difficulty with respiration - Gastrointestinal Gastrointestinal Comment(s): Soft, tenderness in the epigastrium and right upper quadrant, mildly distended, no rebound, no guarding - Psychiatric Psychiatric: Present: A&O x's 3 - Labs CBC & Chem 7: 10/09/18 08:31 10/09/18 08:31 Labs: Abnormal Lab Results - Last 24 Hours (Table) 10/09/18 10/10/18 Range/Units 11:27 07:01 POC Glucose (mg/dL) 104 H 101 H (75-99) mg/dL Assessment and Plan (1) Acute pancreatitis Narrative/Plan: 53-year-old female with gallstone pancreatitis - Awaiting morning labs. We will follow leukocytosis. - Due to the patient having multiple nausea and emesis episodes overnight, we will keep the patient nothing by mouth - Patient is complaining of back pain. We will add Toradol for pain control. - Patient will require cholecystectomy during this admission. It appears that she still is having pancreatitis symptoms and we will continue to treat pancreatitis prior to cholecystectomy. Current Visit: Yes Status: Acute Code(s): K85.90 - ACUTE PANCREATITIS WITHOUT NECROSIS OR INFECTION, UNSP SNOMED Code(s): 742382898
[2018-10-10] MEDS: KETOROLAC 30 MG/ML 1 ML VIAL IVP PRN ×2 (11:22→18:47)
[2018-10-10 11:23] LABS: ALT 60 U/L (9-52); AST 28 U/L (14-36); Albumin 3.6 g/dL (3.5-5.0); Alkaline Phosphatase 76 U/L (38-126); Anion Gap 10 mmol/L; Blood Urea Nitrogen 5 mg/dL (7-17); Carbon Dioxide 25 mmol/L (22-30); Chloride 103 mmol/L (98-107); Glucose 105 mg/dL (74-99); Lipase 155 U/L (23-300); Potassium 4.3 mmol/L (3.5-5.1); Sodium 138 mmol/L (137-145); Total Bilirubin 1.3 mg/dL (0.2-1.3); Total Protein 6.8 g/dL (6.3-8.2)
[2018-10-10 11:25] LABS: HCT 39.9 % (34.0-46.0); HGB 13.2 gm/dL (11.4-16.0); MCH 27.4 pg (25.0-35.0); MCHC 33.2 g/dL (31.0-37.0); MCV 82.7 fL (80.0-100.0); Mean Platelet Volume 6.4; Platelet Count 332 k/uL (150-450); RBC 4.82 m/uL (3.80-5.40); RDW 14.1 % (11.5-15.5); WBC 23.3 k/uL (3.8-10.6)
[2018-10-10 11:40] LABS: Glucose,Whole Blood 105 mg/dL (75-99)
--- NOTE | 2018-10-10 14:53 | P.PN ---
Subjective 53-year-old admitted for gall stone pancreatitis patient can use to have symptoms of nausea and continues to have severe abdominal pain. Her lipase has come down her liver enzymes have come down gastroenterology and general surgery evaluate the patient patient was started on Unasyn for possibility of acute cholecystitis cannot be ruled out. Patient will remain nothing by mouth on IV fluids and above-mentioned antibiotics. Patient did have worsening leukocytosis 10/10/2018 Patient's lipase has come down patient is still nauseous because of which patient is not being started on diet patient nausea is probably secondary to cholelithiasis and cholecystitis. Patient's pain improved and patient was started on tramadol by general surgery. Constitutional: Denied any fatigue denied any fever. Cardio vascular: denied any chest pain, palpitations Gastrointestinal as mentioned in HPI Pulmonary: Denied any shortness of breath cough Neurologic denied any new focal deficits All inpatient medications were reviewed and appropriate changes in these medications as dictated in the interval history and assessment and plan. Objective - Vital Signs Vital signs: Vital Signs Temp 98.7 F 10/10/18 13:08 Pulse 79 10/10/18 13:08 Resp 20 10/10/18 13:08 BP 143/88 10/10/18 13:08 Pulse Ox 95 10/10/18 13:08 Intake & Output 10/09/18 10/10/18 10/10/18 18:59 06:59 18:59 Other: # Voids 3 2 2 # Bowel Movements 0 - Exam PHYSICAL EXAMINATION: GENERAL: The patient is alert and oriented x3, not in any acute distress. Well developed, well nourished. HEENT: Pupils are round and equally reacting to light. EOMI. No scleral icterus. No conjunctival pallor. Normocephalic, atraumatic. No pharyngeal erythema. No thyromegaly. CARDIOVASCULAR: S1 and S2 present. No murmurs, rubs, or gallops. PULMONARY: Chest is clear to auscultation, no wheezing or crackles. ABDOMEN: Epigastric abdominal tenderness mild no significant right upper quadrant tenderness did not believe patient has Smith's sign that is positive MUSCULOSKELETAL: No joint swelling or deformity. EXTREMITIES: No cyanosis, clubbing, or pedal edema. NEUROLOGICAL: Gross neurological examination did not reveal any focal deficits. SKIN: No rashes. - Labs CBC & Chem 7: 10/10/18 10:49 10/10/18 10:49 Labs: Abnormal Lab Results - Last 24 Hours (Table) 10/10/18 10/10/18 10/10/18 Range/Units 07:01 10:49 10:49 WBC 23.3 H (3.8-10.6) k/uL BUN 5 L (7-17) mg/dL Creatinine 0.47 L (0.52-1.04) mg/dL Glucose 105 H (74-99) mg/dL POC Glucose (mg/dL) 101 H (75-99) mg/dL ALT 60 H (9-52) U/L 10/10/18 Range/Units 11:38 WBC (3.8-10.6) k/uL BUN (7-17) mg/dL Creatinine (0.52-1.04) mg/dL Glucose (74-99) mg/dL POC Glucose (mg/dL) 105 H (75-99) mg/dL ALT (9-52) U/L Assessment and Plan Plan: -Gallstone pancreatitis: Patient will be nothing by mouth IV fluids will be continued but will cut down IV fluids 200 mL per hour, liver enzymes close to normal cholecystectomy as per general surgery area and patient is presently on Unasyn there is mild worsening of leukocytosis -Possibility of acute cholecystitis cannot be ruled out because of which patient was started on Unasyn -Leukocytosis secondary to acute pancreatitis and possibility of cholecystitis -Elevated liver enzymes due to above-mentioned reasons, improved compared to yesterday -Leukocytosis secondary to pancreatitis -Hypertension -anxiety and depression Patient will need pharmacologic GI and DVT prophylaxis
[2018-10-10] MEDS: CAPSAICIN 0.025% CREAM 60 GM TUBE TOPICAL PRN ×2 (16:20→20:08)
[2018-10-10 17:10] LABS: Glucose,Whole Blood 81 mg/dL (75-99)
--- NOTE | 2018-10-10 19:09 | P.PN ---
Subjective Progress Note Date: 10/10/18 Principal diagnosis: Acute pancreatitis Patient is seen lying in bed, still reporting abdominal pain. She is also having some nausea. She has been kept nothing by mouth. She is reporting that she has been ambulating. Objective - Vital Signs Vital signs: Vital Signs Temp 99.0 F 10/10/18 05:26 Pulse 93 10/10/18 05:26 Resp 18 10/10/18 05:26 BP 171/96 10/10/18 05:26 Pulse Ox 97 10/10/18 05:26 Intake & Output 10/09/18 10/10/18 10/10/18 18:59 06:59 18:59 Other: # Voids 3 2 # Bowel Movements 0 - Exam On physical examination, patient appears comfortable in no apparent distress. HEAD: Normocephalic, atraumatic. EYES: No scleral icterus. No conjunctival injection. MOUTH: No lesions, tongue midline. NECK: Trachea midline, no gross abnormalities. CHEST: Clear to auscultation with no wheezing or rhonchi appreciated. HEART: Regular rate and rhythm. ABDOMEN: Soft, obese, tender to palpation. Bowel sounds are positive. No organomegaly. No guarding or rigidity. EXTREMITIES: No pedal edema. SKIN: No rashes, no jaundice. NEUROLOGIC: Alert and oriented x3. No focal deficits. - Labs CBC & Chem 7: 10/10/18 10:49 10/10/18 10:49 Labs: Abnormal Lab Results - Last 24 Hours (Table) 10/09/18 10/10/18 10/10/18 Range/Units 11:27 07:01 10:49 BUN 5 L (7-17) mg/dL Creatinine 0.47 L (0.52-1.04) mg/dL Glucose 105 H (74-99) mg/dL POC Glucose (mg/dL) 104 H 101 H (75-99) mg/dL ALT 60 H (9-52) U/L Assessment and Plan (1) Acute pancreatitis Narrative/Plan: Acute uncomplicated pancreatitis, with patient presenting with symptoms of abdominal pain, nausea and vomiting. Some improvement with pain control and IV fluid hydration since presentation. Lipase greater than 20,000 on presentation. Computed tomography scan significant for". Pancreatitis with ultrasound of the abdomen showing cholelithiasis without any biliary ductal dilation. Suspicion is for gallstone pancreatitis with choledocholithiasis less likely in the setting of normal liver enzymes. Current Visit: Yes Status: Acute Code(s): K85.90 - ACUTE PANCREATITIS WITHOUT NECROSIS OR INFECTION, UNSP SNOMED Code(s): 338778103 Plan: Supportive care Nothing by mouth, advance to low-fat diet as tolerated Appreciate surgical recommendations Plan is for cholecystectomy when patient's condition is improved Continue IV fluid hydration Continue pain control Encourage ambulation as tolerated Continue to monitor labs Given increase in leukocytosis antibiotic coverage has been added for possible cholecystitis No plans for ERCP at this time X-ray abdomen was ordered in the setting of continued abdominal pain and the patient reporting no bowel movements or flatus to rule out ileus Thank you for allowing us to participate in the care of the patient we will co shruti to follow
--- NOTE | 2018-10-10 19:37 | XR ---
EXAMINATION TYPE: XR abdomen 1V DATE OF EXAM: 10/10/2018 COMPARISON: 10/08/2018 HISTORY: Abdominal pain TECHNIQUE: 2 views supine FINDINGS: There is no sign of intestinal obstruction or pneumoperitoneum. Fecal pattern is normal. Th ere are numerous phleboliths in the pelvis. Lung bases are clear. There are no pathologic calcificati ons over the kidneys. IMPRESSION: Nonacute abdomen.
[2018-10-10] MEDS: OXYBUTYNIN XL 5 MG TAB.ER.24 PO SCH (20:08)
[2018-10-10] MEDS: LISINOPRIL 20 MG TAB PO SCH (20:08)
[2018-10-10] MEDS: CITALOPRAM HYDROBROMIDE 20 MG TAB PO SCH (20:42)
[2018-10-10 20:49] LABS: Glucose,Whole Blood 79 mg/dL (75-99)
[2018-10-11] MEDS: KETOROLAC 30 MG/ML 1 ML VIAL IVP PRN ×4 (00:25→23:30)
[2018-10-11] MEDS: ONDANSETRON 4 MG/2 ML VIAL IVP PRN (02:32)
[2018-10-11] MEDS: HYDROmorphone 0.5 MG/0.5 ML SYRINGE IVP PRN ×7 (02:32→20:57)
[2018-10-11] MEDS: SODIUM CHLORIDE 0.9% 1,000 ML IV SCH ×2 (02:38→20:12)
[2018-10-11 06:42] LABS: Basophils % (A) 0 %; Eosinophils # (A) 0.2 k/uL (0-0.7); Eosinophils % (A) 1 %; HCT 39.4 % (34.0-46.0); HGB 12.6 gm/dL (11.4-16.0); Lymphocytes # (A) 1.4 k/uL (1.0-4.8); Lymphocytes % (A) 8 %; MCH 26.4 pg (25.0-35.0); MCV 82.6 fL (80.0-100.0); Mean Platelet Volume 6.6; Monocytes # (A) 0.9 k/uL (0-1.0); Monocytes % (A) 5 %; Neutrophils # (A) 16.5 k/uL (1.3-7.7); Neutrophils % (A) 86 %; Platelet Count 346 k/uL (150-450); RBC 4.77 m/uL (3.80-5.40); RDW 14.2 % (11.5-15.5); WBC 19.2 k/uL (3.8-10.6)
[2018-10-11 06:46] LABS: Glucose,Whole Blood 71 mg/dL (75-99)
[2018-10-11 06:51] LABS: ALT 52 U/L (9-52); AST 22 U/L (14-36); Albumin 3.4 g/dL (3.5-5.0); Alkaline Phosphatase 74 U/L (38-126); Anion Gap 7 mmol/L; Blood Urea Nitrogen 12 mg/dL (7-17); Calcium 8.8 mg/dL (8.4-10.2); Carbon Dioxide 24 mmol/L (22-30); Chloride 109 mmol/L (98-107); Glucose 77 mg/dL (74-99); Lipase 98 U/L (23-300); Potassium 3.9 mmol/L (3.5-5.1); Sodium 140 mmol/L (137-145); Total Bilirubin 1.2 mg/dL (0.2-1.3); Total Protein 6.9 g/dL (6.3-8.2)
[2018-10-11] MEDS: PANTOPRAZOLE 40 MG/10 ML VIAL IVP SCH (08:22)
[2018-10-11] MEDS: HEPARIN SODIUM,PORCINE 5,000 UNIT/ML 1 ML VIAL SQ SCH ×2 (08:23→15:50)
[2018-10-11] MEDS: AMPICILLIN-SULBACTAM 3 GM in SODIUM CHLORIDE 0.9% 100 ML IVPB SCH ×2 (09:53→15:50)
--- NOTE | 2018-10-11 10:31 | CT ---
EXAMINATION TYPE: CT abdomen pelvis w con DATE OF EXAM: 10/11/2018 HISTORY: Acute pancreatitis CT DLP: 3222.00mGycm Automated Exposure Control for Dose Reduction was Utilized. CONTRAST: CT scan of the abdomen and pelvis is performed with oral water and with IV Contrast, patient injected with 100 ml mL of Isovue 370. COMPARISON: Pancreas CT from 3 days ago. FINDINGS: LUNG BASES: There is new tiny right pleural effusion. LIVER/GB: Liver is diffusely low dense consistent with fatty infiltration. Liver remains mildly enlar ged. Dependent calcified gallstones are redemonstrated. PANCREAS: There is fairly uniform enhancement of the pancreas without areas of nonenhancement or necr osis. There is moderate ill-defined fluid and fat stranding consistent with acute pancreatitis. No we ll-formed fluid collection is identified.. SPLEEN: No significant abnormality is seen. ADRENALS: No significant abnormality is seen. KIDNEYS: Symmetric cortical medullary uptake and excretion is seen without hydronephrosis bilaterally .. BOWEL: Patient had difficulty drinking oral water. There is poor distention of bowel making evaluatio n somewhat suboptimal. There is no suspicious dilatation of small or large bowel loops. Some residual contrast is noted in colonic loops. UTERUS/ADNEXA: Anteverted uterus is seen. There is small to moderate amount of free fluid in pelvic c ul-de-sac. Both ovaries are seen and normal in size. LYMPH NODES: No greater than 1cm abdominal or pelvic lymph nodes are appreciated. OSSEOUS STRUCTURES: Some facet arthropathy lower lumbar spine is seen. OTHER: There is wide mild ventral wall hernia containing fat and tiny mesenteric vessels below the um bilicus extending to right of midline. Some subcutaneous air anterior right pelvic wall is presumed p roduct of subcutaneous medicine injection, correlate clinically. IMPRESSION: CT findings consistent with product of fairly moderate acute pancreatitis redemonstrated. No significant change in degree of surrounding inflammation from prior CT. No necrosis or well-forme d fluid collection identified.
[2018-10-11 12:18] LABS: Glucose,Whole Blood 66 mg/dL (75-99)
[2018-10-11] MEDS ORDERED: DEXTROSE 50%-WATER 50 ML SYRINGE IVP ONE (12:33)
[2018-10-11 12:37] LABS: Glucose,Whole Blood 64 mg/dL (75-99)
[2018-10-11 12:54] LABS: Glucose,Whole Blood 151 mg/dL (75-99)
--- NOTE | 2018-10-11 13:34 | P.PN ---
Subjective 53-year-old admitted for gall stone pancreatitis patient can use to have symptoms of nausea and continues to have severe abdominal pain. Her lipase has come down her liver enzymes have come down gastroenterology and general surgery evaluate the patient patient was started on Unasyn for possibility of acute cholecystitis cannot be ruled out. Patient will remain nothing by mouth on IV fluids and above-mentioned antibiotics. Patient did have worsening leukocytosis 10/10/2018 Patient's lipase has come down patient is still nauseous because of which patient is not being started on diet patient nausea is probably secondary to cholelithiasis and cholecystitis. Patient's pain improved and patient was started on tramadol by general surgery. 10/11/2018 Patient can use to have abdominal pain patient will undergo cholecystectomy hopefully that really makes her pain better. Continue with antibiotics for no nausea improved Constitutional: Denied any fatigue denied any fever. Cardio vascular: denied any chest pain, palpitations Gastrointestinal as mentioned in HPI Pulmonary: Denied any shortness of breath cough Neurologic denied any new focal deficits All inpatient medications were reviewed and appropriate changes in these medications as dictated in the interval history and assessment and plan. Objective - Vital Signs Vital signs: Vital Signs Temp 98.4 F 10/11/18 12:41 Pulse 82 10/11/18 12:41 Resp 16 10/11/18 12:41 BP 179/81 10/11/18 12:42 Pulse Ox 95 10/11/18 12:41 Intake & Output 10/10/18 10/11/18 10/11/18 18:59 06:59 18:59 Intake Total 500 Balance 500 Intake: Oral 500 Other: Voiding Method Toilet # Voids 2 2 1 - Exam PHYSICAL EXAMINATION: GENERAL: The patient is alert and oriented x3, not in any acute distress. Well developed, well nourished. HEENT: Pupils are round and equally reacting to light. EOMI. No scleral icterus. No conjunctival pallor. Normocephalic, atraumatic. No pharyngeal erythema. No thyromegaly. CARDIOVASCULAR: S1 and S2 present. No murmurs, rubs, or gallops. PULMONARY: Chest is clear to auscultation, no wheezing or crackles. ABDOMEN: Epigastric abdominal tenderness mild no significant right upper quadrant tenderness did not believe patient has Smith's sign that is positive MUSCULOSKELETAL: No joint swelling or deformity. EXTREMITIES: No cyanosis, clubbing, or pedal edema. NEUROLOGICAL: Gross neurological examination did not reveal any focal deficits. SKIN: No rashes. - Labs CBC & Chem 7: 10/11/18 06:28 10/11/18 06:28 Labs: Abnormal Lab Results - Last 24 Hours (Table) 10/11/18 10/11/18 10/11/18 Range/Units 06:28 06:28 06:45 WBC 19.2 H (3.8-10.6) k/uL Neutrophils # 16.5 H (1.3-7.7) k/uL Chloride 109 H (98-107) mmol/L Creatinine 0.50 L (0.52-1.04) mg/dL POC Glucose (mg/dL) 71 L (75-99) mg/dL Albumin 3.4 L (3.5-5.0) g/dL 10/11/18 10/11/18 10/11/18 Range/Units 12:16 12:34 12:52 WBC (3.8-10.6) k/uL Neutrophils # (1.3-7.7) k/uL Chloride (98-107) mmol/L Creatinine (0.52-1.04) mg/dL POC Glucose (mg/dL) 66 L 64 L 151 H (75-99) mg/dL Albumin (3.5-5.0) g/dL Assessment and Plan Plan: -Gallstone pancreatitis: Patient will be nothing by mouth IV fluids will be continued, acute cholecystitis cannot be ruled out patient is on Unasyn will undergo cholecystectomy today -Possibility of acute cholecystitis cannot be ruled out because of which patient is on Unasyn -Leukocytosis secondary to acute pancreatitis and possibility of cholecystitis -Elevated liver enzymes, normalized now -Leukocytosis secondary to pancreatitis -Hypertension -anxiety and depression Patient will need pharmacologic GI and DVT prophylaxis
[2018-10-11 14:18] VITALS: BMI 51.2
[2018-10-11] MEDS ORDERED: IV FLUID CONTINUATION 1,000 ML IV ONE (16:01)
[2018-10-11 16:09] LABS: Glucose,Whole Blood 80 mg/dL (75-99)
[2018-10-11] MEDS ORDERED: PROPOFOL 10 MG/ML 20 ML VIAL IV ONE (16:50)
[2018-10-11] MEDS ORDERED: fentaNYL (PF) 50 MCG/ML 2 ML AMP ONE (16:50)
[2018-10-11] MEDS ORDERED: LIDOCAINE 1% INJ 10MG/ML (20 ML MDV) ONE (16:50)
[2018-10-11] MEDS ORDERED: GLYCOPYRROLATE 0.2 MG/ML 2 ML VIAL ONE (16:50)
[2018-10-11] MEDS ORDERED: ROCURONIUM BROMIDE 10 MG/ML 10 ML VIAL IV ONE (16:50)
[2018-10-11] MEDS ORDERED: NEOSTIGMINE 1 MG/ML 10 ML VIAL ONE (16:50)
[2018-10-11] MEDS ORDERED: MIDAZOLAM 2 MG/2 ML VIAL ONE (16:50)
[2018-10-11] MEDS ORDERED: SUCCINYLCHOLINE CHLORIDE 100 MG/5 ML SYR IV ONE (16:50)
[2018-10-11] MEDS ORDERED: BUPIVACAIN-EPI 0.5%-1:200,000 30 ML VIAL SQ ONE ×2 (17:12→18:22)
[2018-10-11] MEDS ORDERED: LACTATED RINGERS 1,000 ML IV ONE ×2 (17:24)
--- NOTE | 2018-10-11 18:39 | P.OP ---
Date of Procedure: 10/11/18 Preoperative Diagnosis: Gallstone pancreatitis Postoperative Diagnosis: Gallstone pancreatitis Procedure(s) Performed: Laparoscopic cholecystectomy Anesthesia: FARSHAD Surgeon: Elieser Slaughter Pathology: other (Gallbladder and contents) Condition: stable Disposition: floor Indications for Procedure: 53-year-old female presented to the emergency department with complaints of abdominal pain. She was admitted to the hospital for gallstone pancreatitis that was found on workup. She has been treated with IV fluids for the past few days along with nothing by mouth management. Leukocytosis decreased mildly today and due to continued right upper quadrant pain, we are planning for laparoscopic cholecystectomy. The patient was explained the risks, benefits and alternatives to the procedure. She did provide consent prior to attending the operating suite. Operative Findings: Significantly distended right and transverse colon Inflamed gallbladder Ascitic fluid throughout abdomen Description of Procedure: The patient was brought into the operating suite and placed in supine position on the operating table. Sedation was provided by anesthesia and the patient underwent endotracheal intubation. The patient was then prepped and draped in regular sterile fashion. An incision was made just right lateral to the umbilicus and the abdomen was entered under direct visualization using a 12 mm Optiview port. Pneumoperitoneum was then achieved. It was immediately clear that the patient had a significant amount of distended bowel within her abdomen. Her right colon and transverse colon were noted to be distended. The gallbladder was clearly visualized. An additional 5 mm port was placed in the subxiphoid location and the gallbladder was grasped. It was noted to be inflamed. There was also noted ascites above the liver. 2 additional ports were then placed in the right upper quadrant. The gallbladder was grasped and retracted a suction device was used to suction the ascitic fluid. The gallbladder was then grasped and retracted above the liver and laterally. Dissection was carried to dissect the peritoneal attachments from the gallbladder. The gallbladder was also noted to be edematous. Dissection was carried in the cystic duct was visualized in the critical view. The cystic artery was then clearly visualized as well. The cystic duct was skeletonized. 2 clips were placed proximally one was placed distally and the cystic duct was ligated. The cystic artery was then skeletonized and 2 clips were placed proximally one was placed distally and the cystic artery was ligated. At this point the gallbladder was dissected from the gallbladder bed using electrocautery. There was some notable spillage of bile during this process. This was irrigated and suctioned. The gallbladder was then placed in an Endo Catch bag and removed from the abdomen from the 12 mm port site. At this point copious amounts irrigation was used in the right upper quadrant. Hemostasis was noted to be maintained. Due to the significant edema and inflammation of the gallbladder, a LINCOLN drain was placed in the right upper quadrant using one of the 5 mm port sites. This was secured with a 2-0 nylon suture. At this point the 12 mm port was removed. The fascial incision was closed with an 0 Vicryl suture using a Gagandeep-Donaldo device under direct visualization. The remaining ports were then removed from the abdomen. All skin incisions were closed with 4-0 Vicryl subcuticular suture. Sterile dressing was applied. The patient was awakened in the operating suite and taken to postanesthesia care unit in stable condition..
[2018-10-11] MEDS ORDERED: HYDROmorphone 1 MG/ML 1 ML SYRINGE IVP ONE ×2 (19:25→19:26)
[2018-10-11] MEDS: DEXTROSE 5%-0.9% NACL 1,000 ML IV SCH (20:09)
--- NOTE | 2018-10-11 20:39 | P.PN ---
Subjective Progress Note Date: 10/11/18 Principal diagnosis: Acute pancreatitis Patient is seen lying in bed, still reporting abdominal pain. Plan for OR today. Objective - Vital Signs Vital signs: Vital Signs Temp 98 F 10/11/18 07:54 Pulse 77 10/11/18 07:54 Resp 20 10/11/18 07:54 BP 175/99 10/11/18 07:54 Pulse Ox 94 L 10/11/18 07:54 Intake & Output 10/10/18 10/11/18 10/11/18 18:59 06:59 18:59 Other: Voiding Method Toilet # Voids 2 2 - Exam On physical examination, patient appears comfortable in no apparent distress. HEAD: Normocephalic, atraumatic. EYES: No scleral icterus. No conjunctival injection. MOUTH: No lesions, tongue midline. NECK: Trachea midline, no gross abnormalities. CHEST: Clear to auscultation with no wheezing or rhonchi appreciated. HEART: Regular rate and rhythm. ABDOMEN: Soft, obese, tender to palpation. Bowel sounds are positive. No organomegaly. No guarding or rigidity. EXTREMITIES: No pedal edema. SKIN: No rashes, no jaundice. NEUROLOGIC: Alert and oriented x3. No focal deficits. - Labs CBC & Chem 7: 10/11/18 06:28 10/11/18 06:28 Labs: Abnormal Lab Results - Last 24 Hours (Table) 10/10/18 10/10/18 10/10/18 Range/Units 10:49 10:49 11:38 WBC 23.3 H (3.8-10.6) k/uL Neutrophils # (1.3-7.7) k/uL Chloride (98-107) mmol/L BUN 5 L (7-17) mg/dL Creatinine 0.47 L (0.52-1.04) mg/dL Glucose 105 H (74-99) mg/dL POC Glucose (mg/dL) 105 H (75-99) mg/dL ALT 60 H (9-52) U/L Albumin (3.5-5.0) g/dL 10/11/18 10/11/18 10/11/18 Range/Units 06:28 06:28 06:45 WBC 19.2 H (3.8-10.6) k/uL Neutrophils # 16.5 H (1.3-7.7) k/uL Chloride 109 H (98-107) mmol/L BUN (7-17) mg/dL Creatinine 0.50 L (0.52-1.04) mg/dL Glucose (74-99) mg/dL POC Glucose (mg/dL) 71 L (75-99) mg/dL ALT (9-52) U/L Albumin 3.4 L (3.5-5.0) g/dL Assessment and Plan (1) Acute pancreatitis Narrative/Plan: Acute uncomplicated pancreatitis, with patient presenting with symptoms of abdominal pain, nausea and vomiting. Some improvement with pain control and IV fluid hydration since presentation. Lipase greater than 20,000 on presentation. Computed tomography scan significant acute pancreatitis with ultrasound of the abdomen showing cholelithiasis without any biliary ductal dilation. Suspicion is for gallstone pancreatitis with choledocholithiasis less likely in the setting of normal liver enzymes. Current Visit: Yes Status: Acute Code(s): K85.90 - ACUTE PANCREATITIS WITHOUT NECROSIS OR INFECTION, UNSP SNOMED Code(s): 246837734 Plan: Supportive care Advance diet per surgery Appreciate surgical recommendations Plan is for cholecystectomy today Continue IV fluid hydration Continue pain control Encourage ambulation as tolerated Continue to monitor labs Thank you for allowing us to participate in the care of the patient we will continue to follow
[2018-10-11 21:07] LABS: Glucose,Whole Blood 100 mg/dL (75-99)
[2018-10-11] MEDS: LISINOPRIL 20 MG TAB PO SCH (22:57)
[2018-10-11] MEDS: CITALOPRAM HYDROBROMIDE 20 MG TAB PO SCH (22:57)
[2018-10-12] MEDS: HEPARIN SODIUM,PORCINE 5,000 UNIT/ML 1 ML VIAL SQ SCH ×3 (00:20→15:46)
[2018-10-12] MEDS: OXYBUTYNIN XL 5 MG TAB.ER.24 PO SCH ×2 (00:27→21:02)
[2018-10-12] MEDS: AMPICILLIN-SULBACTAM 3 GM in SODIUM CHLORIDE 0.9% 100 ML IVPB SCH ×3 (00:28→15:46)
[2018-10-12] MEDS: HYDROmorphone 0.5 MG/0.5 ML SYRINGE IVP PRN ×4 (01:53→22:20)
[2018-10-12] MEDS: DEXTROSE 5%-0.9% NACL 1,000 ML IV SCH ×2 (05:45→15:20)
[2018-10-12 06:13] LABS: Glucose,Whole Blood 102 mg/dL (75-99)
--- NOTE | 2018-10-12 07:14 | P.PN ---
Subjective Progress Note Date: 10/12/18 Patient seen and examined at bedside. States she is not having any additional right upper quadrant pain but is having some pain around the incision sites. Did rest well overnight. Had some nausea and emesis after surgery but that is resolved. She is tolerating clear liquids at this time. No additional acute events. Objective - Vital Signs Vital signs: Vital Signs Temp 98.0 F 10/11/18 22:30 Pulse 86 10/11/18 22:30 Resp 16 10/11/18 22:30 BP 162/90 10/11/18 22:30 Pulse Ox 94 L 10/11/18 22:30 Intake & Output 10/11/18 10/12/18 10/12/18 18:59 06:59 18:59 Intake Total 1700 50 Output Total 10 570 Balance 1690 -520 Weight 127.006 kg Intake: IV 1200 50 Oral 500 Output: Drainage 170 Right Abdomen 170 Urine 400 Estimated Blood Loss 10 Other: # Voids 1 1 - Constitutional General appearance: Present: cooperative, no acute distress - EENT Eyes: Present: PERRLA - Respiratory Details: No difficulty with respiration - Gastrointestinal Gastrointestinal Comment(s): Soft, appropriate tenderness, mild distention, no rebound, no guarding, LINCOLN drain in place with serosanguineous output - Psychiatric Psychiatric: Present: A&O x's 3 - Labs CBC & Chem 7: 10/11/18 06:28 10/11/18 06:28 Labs: Abnormal Lab Results - Last 24 Hours (Table) 10/11/18 10/11/18 10/11/18 Range/Units 12:16 12:34 12:52 POC Glucose (mg/dL) 66 L 64 L 151 H (75-99) mg/dL 10/11/18 10/12/18 Range/Units 20:55 06:01 POC Glucose (mg/dL) 100 H 102 H (75-99) mg/dL Assessment and Plan (1) Acute pancreatitis Narrative/Plan: 53-year-old female with gallstone pancreatitis, POD #1 from lap audie - Awaiting morning labs - Continue clear liquid diet as pt did have some emesis after surgery - Pain controlpostoperative day #1 from laparoscopic cholecystectomy - Cont LINCOLN care - Increase activity as tolerated - Cont abx Current Visit: Yes Status: Acute Code(s): K85.90 - ACUTE PANCREATITIS WITHOUT NECROSIS OR INFECTION, UNSP SNOMED Code(s): 974867996
[2018-10-12] MEDS: KETOROLAC 30 MG/ML 1 ML VIAL IVP PRN ×3 (07:46→22:55)
[2018-10-12 08:55] LABS: Basophils # (A) 0.1 k/uL (0-0.2); Basophils % (A) 0 %; Eosinophils # (A) 0.2 k/uL (0-0.7); Eosinophils % (A) 2 %; HCT 34.3 % (34.0-46.0); HGB 11.5 gm/dL (11.4-16.0); Lymphocytes # (A) 1.4 k/uL (1.0-4.8); Lymphocytes % (A) 10 %; MCH 27.7 pg (25.0-35.0); MCHC 33.4 g/dL (31.0-37.0); MCV 82.8 fL (80.0-100.0); Monocytes # (A) 0.7 k/uL (0-1.0); Monocytes % (A) 5 %; Neutrophils # (A) 12.3 k/uL (1.3-7.7); Neutrophils % (A) 82 %; Platelet Count 366 k/uL (150-450); RBC 4.14 m/uL (3.80-5.40); RDW 14.3 % (11.5-15.5); WBC 14.9 k/uL (3.8-10.6)
[2018-10-12 09:08] LABS: ALT 62 U/L (9-52); AST 49 U/L (14-36); Albumin 2.9 g/dL (3.5-5.0); Alkaline Phosphatase 67 U/L (38-126); Anion Gap 4 mmol/L; Blood Urea Nitrogen 8 mg/dL (7-17); Calcium 8.2 mg/dL (8.4-10.2); Carbon Dioxide 27 mmol/L (22-30); Chloride 105 mmol/L (98-107); Glucose 98 mg/dL (74-99); Potassium 3.4 mmol/L (3.5-5.1); Sodium 136 mmol/L (137-145); Total Bilirubin 0.9 mg/dL (0.2-1.3); Total Protein 6.1 g/dL (6.3-8.2)
[2018-10-12] MEDS ORDERED: POTASSIUM CHLORIDE ER 20 MEQ TAB.ER PO STA (09:18)
[2018-10-12] MEDS: PANTOPRAZOLE 40 MG/10 ML VIAL IVP SCH (10:11)
[2018-10-12] MEDS: HYDROcodone/APAP 5-325MG 1 EACH TAB PO PRN (10:13)
[2018-10-12 11:46] LABS: Glucose,Whole Blood 107 mg/dL (75-99)
--- NOTE | 2018-10-12 15:36 | P.PN ---
Subjective 53-year-old admitted for gall stone pancreatitis patient can use to have symptoms of nausea and continues to have severe abdominal pain. Her lipase has come down her liver enzymes have come down gastroenterology and general surgery evaluate the patient patient was started on Unasyn for possibility of acute cholecystitis cannot be ruled out. Patient will remain nothing by mouth on IV fluids and above-mentioned antibiotics. Patient did have worsening leukocytosis 10/10/2018 Patient's lipase has come down patient is still nauseous because of which patient is not being started on diet patient nausea is probably secondary to cholelithiasis and cholecystitis. Patient's pain improved and patient was started on tramadol by general surgery. 10/11/2018 Patient can use to have abdominal pain patient will undergo cholecystectomy hopefully that really makes her pain better. Continue with antibiotics for no nausea improved 10/12/2018 Patient underwent a cholecystectomy which regimen as pancreatitis patient has right sided LINCOLN drain from the surgical site area which is draining serous sinus fluid. Patient doesn't have any more fever patient's white blood cell count is coming down patient remains on Unasyn patient pain is not well controlled because of which required she is taking Dilaudid did not pass gas yet does have bowel sounds. Patient is ambulating in hallway her pain is better controlled with the Dilaudid and Toradol Constitutional: Denied any fatigue denied any fever. Cardio vascular: denied any chest pain, palpitations Gastrointestinal as mentioned in HPI Pulmonary: Denied any shortness of breath cough Neurologic denied any new focal deficits All inpatient medications were reviewed and appropriate changes in these medications as dictated in the interval history and assessment and plan. Objective - Vital Signs Vital signs: Vital Signs Temp 98.3 F 10/12/18 12:14 Pulse 82 10/12/18 12:14 Resp 16 10/12/18 12:14 BP 174/89 10/12/18 12:14 Pulse Ox 94 L 10/12/18 12:14 Intake & Output 10/11/18 10/12/18 10/12/18 18:59 06:59 18:59 Intake Total 1700 50 360 Output Total 10 570 61 Balance 1690 -520 299 Weight 127.006 kg Intake: IV 1200 50 Oral 500 360 Output: Drainage 170 60 Right Abdomen 170 60 Urine 400 Emesis 1 Estimated Blood Loss 10 Other: # Voids 1 1 1 - Exam PHYSICAL EXAMINATION: GENERAL: The patient is alert and oriented x3, not in any acute distress. Well developed, well nourished. HEENT: Pupils are round and equally reacting to light. EOMI. No scleral icterus. No conjunctival pallor. Normocephalic, atraumatic. No pharyngeal erythema. No thyromegaly. CARDIOVASCULAR: S1 and S2 present. No murmurs, rubs, or gallops. PULMONARY: Chest is clear to auscultation, no wheezing or crackles. ABDOMEN: Patient has a right sided LINCOLN drain abdominal binder in place bowel sounds present MUSCULOSKELETAL: No joint swelling or deformity. EXTREMITIES: No cyanosis, clubbing, or pedal edema. NEUROLOGICAL: Gross neurological examination did not reveal any focal deficits. SKIN: No rashes. - Labs CBC & Chem 7: 10/12/18 08:21 10/12/18 08:21 Labs: Abnormal Lab Results - Last 24 Hours (Table) 10/11/18 10/12/18 10/12/18 Range/Units 20:55 06:01 08:21 WBC 14.9 H (3.8-10.6) k/uL Neutrophils # 12.3 H (1.3-7.7) k/uL Sodium (137-145) mmol/L Potassium (3.5-5.1) mmol/L POC Glucose (mg/dL) 100 H 102 H (75-99) mg/dL Calcium (8.4-10.2) mg/dL AST (14-36) U/L ALT (9-52) U/L Total Protein (6.3-8.2) g/dL Albumin (3.5-5.0) g/dL 10/12/18 10/12/18 Range/Units 08:21 11:43 WBC (3.8-10.6) k/uL Neutrophils # (1.3-7.7) k/uL Sodium 136 L (137-145) mmol/L Potassium 3.4 L (3.5-5.1) mmol/L POC Glucose (mg/dL) 107 H (75-99) mg/dL Calcium 8.2 L (8.4-10.2) mg/dL AST 49 H (14-36) U/L ALT 62 H (9-52) U/L Total Protein 6.1 L (6.3-8.2) g/dL Albumin 2.9 L (3.5-5.0) g/dL Assessment and Plan Plan: -Gallstone pancreatitis: Pancreatitis improved patient does have cholecystitis as well underwent cholecystectomy with a LINCOLN drain in place -acute cholecystitis status post cholecystectomy and patient is on Unasyn and IV fluids at this time -Leukocytosis secondary to acute pancreatitis and acute cholecystitis -Elevated liver enzymes, normalized now -Hypertension -anxiety and depression Patient will need pharmacologic GI and DVT prophylaxis
[2018-10-12] MEDS: SODIUM CHLORIDE 0.9% 1,000 ML IV SCH (16:01)
[2018-10-12] MEDS: ONDANSETRON 4 MG/2 ML VIAL IVP PRN (21:01)
[2018-10-12] MEDS: CITALOPRAM HYDROBROMIDE 20 MG TAB PO SCH (21:01)
[2018-10-12] MEDS: LISINOPRIL 20 MG TAB PO SCH (21:02)
[2018-10-12] MEDS: SIMETHICONE 80 MG CHEWABLE PO PRN (22:51)
[2018-10-13] MEDS: HEPARIN SODIUM,PORCINE 5,000 UNIT/ML 1 ML VIAL SQ SCH ×3 (00:38→16:18)
[2018-10-13] MEDS: AMPICILLIN-SULBACTAM 3 GM in SODIUM CHLORIDE 0.9% 100 ML IVPB SCH ×3 (00:39→16:18)
[2018-10-13] MEDS: TEMAZEPAM 15 MG CAP PO PRN (00:39)
[2018-10-13] MEDS: HYDROcodone/APAP 5-325MG 1 EACH TAB PO PRN (03:44)
[2018-10-13] MEDS: ONDANSETRON 4 MG/2 ML VIAL IVP PRN (03:44)
[2018-10-13] MEDS: SODIUM CHLORIDE 0.9% 1,000 ML IV SCH (03:46)
[2018-10-13] MEDS: SIMETHICONE 80 MG CHEWABLE PO PRN ×2 (03:48→16:18)
[2018-10-13] MEDS: KETOROLAC 30 MG/ML 1 ML VIAL IVP PRN ×3 (04:51→17:27)
[2018-10-13] MEDS: ALPRAZolam 0.25 MG TAB PO PRN (04:52)
[2018-10-13 06:47] LABS: Basophils % (A) 0 %; Eosinophils # (A) 0.2 k/uL (0-0.7); Eosinophils % (A) 2 %; HCT 32.9 % (34.0-46.0); HGB 10.6 gm/dL (11.4-16.0); Lymphocytes # (A) 1.5 k/uL (1.0-4.8); Lymphocytes % (A) 13 %; MCH 26.5 pg (25.0-35.0); MCHC 32.2 g/dL (31.0-37.0); MCV 82.3 fL (80.0-100.0); Mean Platelet Volume 6.8; Monocytes # (A) 0.8 k/uL (0-1.0); Monocytes % (A) 6 %; Neutrophils # (A) 9.1 k/uL (1.3-7.7); Neutrophils % (A) 78 %; Platelet Count 360 k/uL (150-450); RDW 14.3 % (11.5-15.5); WBC 11.8 k/uL (3.8-10.6)
[2018-10-13 06:58] LABS: ALT 60 U/L (9-52); AST 44 U/L (14-36); Albumin 2.7 g/dL (3.5-5.0); Alkaline Phosphatase 65 U/L (38-126); Anion Gap 10 mmol/L; Blood Urea Nitrogen 9 mg/dL (7-17); Calcium 8.2 mg/dL (8.4-10.2); Carbon Dioxide 23 mmol/L (22-30); Chloride 104 mmol/L (98-107); Glucose 82 mg/dL (74-99); Potassium 3.1 mmol/L (3.5-5.1); Sodium 137 mmol/L (137-145); Total Protein 5.8 g/dL (6.3-8.2)
[2018-10-13] MEDS: PANTOPRAZOLE 40 MG/10 ML VIAL IVP SCH (08:52)
--- NOTE | 2018-10-13 09:18 | P.PN ---
Subjective Progress Note Date: 10/13/18 Patient seen and examined at bedside. States she had multiple emesis episodes overnight. Denies any flatus since surgery. States she is having some abdominal pain around the incision sites. She states that she feels the liquids are too sweet. Objective - Vital Signs Vital signs: Vital Signs Temp 98.1 F 10/13/18 08:10 Pulse 70 10/13/18 08:10 Resp 20 10/13/18 08:10 BP 167/93 10/13/18 08:10 Pulse Ox 94 L 10/13/18 08:10 Intake & Output 10/12/18 10/13/18 10/13/18 18:59 06:59 18:59 Intake Total 600 Output Total 61 565 45 Balance 539 -565 -45 Intake: Oral 600 Output: Drainage 60 65 45 Right Abdomen 60 65 45 Emesis 1 500 Other: # Voids 1 1 # Emeses 1 - Constitutional General appearance: Present: cooperative, no acute distress - EENT Eyes: Present: PERRLA - Respiratory Details: No difficulty with respiration - Gastrointestinal Gastrointestinal Comment(s): Soft, mild distention, appropriate tenderness, no rebound, no guarding - Psychiatric Psychiatric: Present: A&O x's 3 - Labs CBC & Chem 7: 10/13/18 06:28 10/13/18 06:28 Labs: Abnormal Lab Results - Last 24 Hours (Table) 10/12/18 10/13/18 10/13/18 Range/Units 11:43 06:28 06:28 WBC 11.8 H (3.8-10.6) k/uL Hgb 10.6 L (11.4-16.0) gm/dL Hct 32.9 L (34.0-46.0) % Neutrophils # 9.1 H (1.3-7.7) k/uL Potassium 3.1 L (3.5-5.1) mmol/L Creatinine 0.45 L (0.52-1.04) mg/dL POC Glucose (mg/dL) 107 H (75-99) mg/dL Calcium 8.2 L (8.4-10.2) mg/dL AST 44 H (14-36) U/L ALT 60 H (9-52) U/L Total Protein 5.8 L (6.3-8.2) g/dL Albumin 2.7 L (3.5-5.0) g/dL Assessment and Plan (1) Acute pancreatitis Narrative/Plan: 53-year-old female with gallstone pancreatitis, POD #2 from lap audie - Patient did have emesis episode last night and has not had any flatus since surgery. She likely has an expected ileus from the postoperative course along with the pancreatitis. We will begin Reglan. I did recommend frequent ambulation and gum chewing. - Continue clear liquid diet as tolerated - Replace electrolytes as necessary - Pain control - Cont LINCOLN care - Increase activity as tolerated - Cont abx Current Visit: Yes Status: Acute Code(s): K85.90 - ACUTE PANCREATITIS WITHOUT NECROSIS OR INFECTION, UNSP SNOMED Code(s): 766192256
[2018-10-13] MEDS ORDERED: POTASSIUM CHLORIDE 20 MEQ in WATER FOR INJECTION 1 100ML.BAG IVPB SCH (10:00)
[2018-10-13] MEDS: METOCLOPRAMIDE 5 MG/ML 2 ML VIAL IVP SCH ×2 (11:15→17:26)
[2018-10-13] MEDS: POTASSIUM CHLORIDE 10 MEQ in WATER FOR INJECTION 1 100ML.BAG IVPB SCH ×4 (11:21→15:07)
[2018-10-13] MEDS: 0.9% NACL WITH KCL 20 MEQ/L 1,000 ML IV SCH (16:18)
[2018-10-13] MEDS: LISINOPRIL 20 MG TAB PO SCH (20:43)
[2018-10-13] MEDS: OXYBUTYNIN XL 5 MG TAB.ER.24 PO SCH (20:44)
[2018-10-14] MEDS: AMPICILLIN-SULBACTAM 3 GM in SODIUM CHLORIDE 0.9% 100 ML IVPB SCH ×4 (00:25→23:05)
[2018-10-14] MEDS: KETOROLAC 30 MG/ML 1 ML VIAL IVP PRN ×2 (00:25→06:23)
[2018-10-14] MEDS: METOCLOPRAMIDE 5 MG/ML 2 ML VIAL IVP SCH ×5 (00:26→23:05)
[2018-10-14] MEDS: HEPARIN SODIUM,PORCINE 5,000 UNIT/ML 1 ML VIAL SQ SCH ×4 (00:26→23:05)
[2018-10-14] MEDS: SIMETHICONE 80 MG CHEWABLE PO PRN ×3 (00:27→17:19)
[2018-10-14] MEDS: 0.9% NACL WITH KCL 20 MEQ/L 1,000 ML IV SCH ×3 (01:17→14:01)
[2018-10-14] MEDS: ALPRAZolam 0.25 MG TAB PO PRN ×2 (01:17→23:05)
[2018-10-14 06:59] LABS: Basophils % (A) 0 %; Eosinophils # (A) 0.3 k/uL (0-0.7); Eosinophils % (A) 2 %; HCT 33.2 % (34.0-46.0); Lymphocytes # (A) 1.7 k/uL (1.0-4.8); Lymphocytes % (A) 14 %; MCH 26.9 pg (25.0-35.0); MCHC 33.1 g/dL (31.0-37.0); MCV 81.2 fL (80.0-100.0); Mean Platelet Volume 6.5; Monocytes # (A) 0.7 k/uL (0-1.0); Monocytes % (A) 6 %; Neutrophils # (A) 8.9 k/uL (1.3-7.7); Neutrophils % (A) 76 %; Platelet Count 376 k/uL (150-450); RBC 4.09 m/uL (3.80-5.40); RDW 14.3 % (11.5-15.5); WBC 11.8 k/uL (3.8-10.6)
[2018-10-14 07:27] LABS: ALT 63 U/L (9-52); AST 41 U/L (14-36); Albumin 2.8 g/dL (3.5-5.0); Alkaline Phosphatase 80 U/L (38-126); Anion Gap 9 mmol/L; Blood Urea Nitrogen 9 mg/dL (7-17); Calcium 8.3 mg/dL (8.4-10.2); Carbon Dioxide 21 mmol/L (22-30); Chloride 107 mmol/L (98-107); Glucose 87 mg/dL (74-99); Potassium 3.5 mmol/L (3.5-5.1); Sodium 137 mmol/L (137-145); Total Bilirubin 0.7 mg/dL (0.2-1.3)
[2018-10-14] MEDS: PANTOPRAZOLE 40 MG TABLET PO SCH (08:21)
[2018-10-14] MEDS: amLODIPine 5 MG TAB PO SCH (15:10)
--- NOTE | 2018-10-14 16:18 | P.PN ---
Subjective Progress Note Date: 10/14/18 Patient seen and examined at bedside. States she is feeling much better today. Did have a bowel movement and is passing gas. 80 mL of the LINCOLN drain overnight. Mostly serous. Objective - Vital Signs Vital signs: Vital Signs Temp 98.2 F 10/14/18 12:30 Pulse 60 10/14/18 12:30 Resp 16 10/14/18 12:30 BP 162/86 10/14/18 12:30 Pulse Ox 97 10/14/18 12:30 Intake & Output 10/13/18 10/14/18 10/14/18 18:59 06:59 18:59 Output Total 1060 70 80 Balance -1060 -70 -80 Output: Drainage 115 70 80 Right Abdomen 115 70 80 Urine 400 Emesis 545 Other: # Voids 1 1 1 # Bowel Movements 1 1 - Constitutional General appearance: Present: cooperative, no acute distress - EENT Eyes: Present: PERRLA - Respiratory Details: No difficulty with respiration - Gastrointestinal Gastrointestinal Comment(s): Soft, appropriate tenderness, nondistended, no rebound, no guarding - Psychiatric Psychiatric: Present: A&O x's 3 - Labs CBC & Chem 7: 10/14/18 00:00 10/14/18 06:43 Labs: Abnormal Lab Results - Last 24 Hours (Table) 10/14/18 10/14/18 Range/Units 00:00 06:43 WBC 11.8 H (3.8-10.6) k/uL Hgb 11.0 L (11.4-16.0) gm/dL Hct 33.2 L (34.0-46.0) % Neutrophils # 8.9 H (1.3-7.7) k/uL Carbon Dioxide 21 L (22-30) mmol/L Creatinine 0.45 L (0.52-1.04) mg/dL Calcium 8.3 L (8.4-10.2) mg/dL AST 41 H (14-36) U/L ALT 63 H (9-52) U/L Total Protein 6.0 L (6.3-8.2) g/dL Albumin 2.8 L (3.5-5.0) g/dL Assessment and Plan (1) Acute pancreatitis Narrative/Plan: 53-year-old female with gallstone pancreatitis, POD #3 from lap audie - Patient's ileus appears to be resolving. Advance to soft diet today - Due to the high output from the LINCOLN drain, I am concerned that the ileus is likely secondary to ascitic fluid from the pancreatitis. We will continue the LINCOLN drain for one additional day and as long as patient continues to have bowel function, she will be stable for discharge tomorrow. - Replace electrolytes as necessary - Pain control - Cont LINCOLN care - Increase activity as tolerated - Cont abx Current Visit: Yes Status: Acute Code(s): K85.90 - ACUTE PANCREATITIS WITHOUT NECROSIS OR INFECTION, UNSP SNOMED Code(s): 230186987
[2018-10-14] MEDS: HYDROcodone/APAP 5-325MG 1 EACH TAB PO PRN (17:19)
[2018-10-14] MEDS: LISINOPRIL 20 MG TAB PO SCH (20:46)
[2018-10-14] MEDS: OXYBUTYNIN XL 5 MG TAB.ER.24 PO SCH (20:46)
--- NOTE | 2018-10-14 23:52 | P.PN ---
Subjective Progress Note Date: 10/13/18 Principal diagnosis: Acute cholecystitis status post laparoscopic cholecystectomy 53-year-old admitted for gall stone pancreatitis patient can use to have symptoms of nausea and continues to have severe abdominal pain. Her lipase has come down her liver enzymes have come down gastroenterology and general surgery evaluate the patient patient was started on Unasyn for possibility of acute cholecystitis cannot be ruled out. Patient will remain nothing by mouth on IV fluids and above-mentioned antibiotics. Patient did have worsening leukocytosis 10/10/2018 Patient's lipase has come down patient is still nauseous because of which patient is not being started on diet patient nausea is probably secondary to cholelithiasis and cholecystitis. Patient's pain improved and patient was started on tramadol by general surgery. 10/11/2018 Patient can use to have abdominal pain patient will undergo cholecystectomy hopefully that really makes her pain better. Continue with antibiotics for no nausea improved 10/12/2018 Patient underwent a cholecystectomy which regimen as pancreatitis patient has right sided LINCOLN drain from the surgical site area which is draining serous sinus fluid. Patient doesn't have any more fever patient's white blood cell count is coming down patient remains on Unasyn patient pain is not well controlled because of which required she is taking Dilaudid did not pass gas yet does have bowel sounds. Patient is ambulating in hallway her pain is better controlled with the Dilaudid and Toradol 10/13/2018 Patient is still complaining of nausea and episodes of vomiting this morning. Unable to tolerate oral diet. Started on clear liquid diet. No bowel movement. Patient is status post laparoscopic cholecystectomy. Patient is having serosanguineous drainage from the LINCOLN drain. Currently being continued on antibiotics. Continue on symptomatic management for nausea and pain medications. General surgery is following. Leukocytosis improved with WBC count 11.8 from 14.9. Liver enzymes are slightly elevated. Constitutional: Denied any fatigue denied any fever. Cardio vascular: denied any chest pain, palpitations Gastrointestinal as mentioned in HPI Pulmonary: Denied any shortness of breath cough Neurologic denied any new focal deficits All inpatient medications were reviewed and appropriate changes in these medications as dictated in the interval history and assessment and plan. Objective - Vital Signs Vital signs: Vital Signs Temp 98.1 F 10/13/18 11:45 Pulse 75 10/13/18 11:45 Resp 20 10/13/18 11:45 BP 154/69 10/13/18 11:45 Pulse Ox 92 L 10/13/18 11:45 Intake & Output 10/12/18 10/13/18 10/13/18 18:59 06:59 18:59 Intake Total 600 Output Total 61 565 45 Balance 539 -565 -45 Intake: Oral 600 Output: Drainage 60 65 45 Right Abdomen 60 65 45 Emesis 1 500 Other: # Voids 1 1 # Emeses 1 - Exam PHYSICAL EXAMINATION: GENERAL: The patient is alert and oriented x3, not in any acute distress. Well developed, well nourished. HEENT: Pupils are round and equally reacting to light. EOMI. No scleral icterus. No conjunctival pallor. Normocephalic, atraumatic. No pharyngeal erythema. No thyromegaly. CARDIOVASCULAR: S1 and S2 present. No murmurs, rubs, or gallops. PULMONARY: Chest is clear to auscultation, no wheezing or crackles. ABDOMEN: Abdominal pain with tenderness over the surgical sites. No guarding no rigidity. Bowel sounds are sluggish. MUSCULOSKELETAL: No joint swelling or deformity. EXTREMITIES: No cyanosis, clubbing, or pedal edema. NEUROLOGICAL: Gross neurological examination did not reveal any focal deficits. SKIN: No rashes. - Labs CBC & Chem 7: 10/14/18 00:00 10/14/18 06:43 Labs: Abnormal Lab Results - Last 24 Hours (Table) 10/13/18 10/13/18 Range/Units 06:28 06:28 WBC 11.8 H (3.8-10.6) k/uL Hgb 10.6 L (11.4-16.0) gm/dL Hct 32.9 L (34.0-46.0) % Neutrophils # 9.1 H (1.3-7.7) k/uL Potassium 3.1 L (3.5-5.1) mmol/L Creatinine 0.45 L (0.52-1.04) mg/dL Calcium 8.2 L (8.4-10.2) mg/dL AST 44 H (14-36) U/L ALT 60 H (9-52) U/L Total Protein 5.8 L (6.3-8.2) g/dL Albumin 2.7 L (3.5-5.0) g/dL Assessment and Plan Assessment: -Acute Gallstone pancreatitis: Pancreatitis improved patient does have cholecystitis as well underwent cholecystectomy with a LINCOLN drain in place -acute cholecystitis status post cholecystectomy and patient is on Unasyn and IV fluids at this time -Leukocytosis secondary to acute pancreatitis and acute cholecystitis -Elevated liver enzymes, improving now -Hypertension -anxiety and depression Patient will need pharmacologic GI and DVT prophylaxis Time with Patient: Greater than 30
--- NOTE | 2018-10-14 23:54 | P.PN ---
Subjective Progress Note Date: 10/14/18 Principal diagnosis: Acute cholecystitis status post laparoscopic cholecystectomy 53-year-old admitted for gall stone pancreatitis patient can use to have symptoms of nausea and continues to have severe abdominal pain. Her lipase has come down her liver enzymes have come down gastroenterology and general surgery evaluate the patient patient was started on Unasyn for possibility of acute cholecystitis cannot be ruled out. Patient will remain nothing by mouth on IV fluids and above-mentioned antibiotics. Patient did have worsening leukocytosis 10/10/2018 Patient's lipase has come down patient is still nauseous because of which patient is not being started on diet patient nausea is probably secondary to cholelithiasis and cholecystitis. Patient's pain improved and patient was started on tramadol by general surgery. 10/11/2018 Patient can use to have abdominal pain patient will undergo cholecystectomy hopefully that really makes her pain better. Continue with antibiotics for no nausea improved 10/12/2018 Patient underwent a cholecystectomy which regimen as pancreatitis patient has right sided LINCOLN drain from the surgical site area which is draining serous sinus fluid. Patient doesn't have any more fever patient's white blood cell count is coming down patient remains on Unasyn patient pain is not well controlled because of which required she is taking Dilaudid did not pass gas yet does have bowel sounds. Patient is ambulating in hallway her pain is better controlled with the Dilaudid and Toradol 10/13/2018 Patient is still complaining of nausea and episodes of vomiting this morning. Unable to tolerate oral diet. Started on clear liquid diet. No bowel movement. Patient is status post laparoscopic cholecystectomy. Patient is having serosanguineous drainage from the LINCOLN drain. Currently being continued on antibiotics. Continue on symptomatic management for nausea and pain medications. General surgery is following. Leukocytosis improved with WBC count 11.8 from 14.9. Liver enzymes are slightly elevated. 10/14/2018 Patient is currently sitting in a chair comfortably. Denied any complaints of nausea or vomiting. Feels much better today. Tolerating oral diet and did have a bowel movement. LINCOLN drain has serous fluid. Abdominal pain is improved as well. No fever no chills. Leukocytosis remained same a WBC count 11.8. Liver enzymes are slightly elevated. Overall a villagomez is clinically improving. Able to ambulating in the hallway. Pain is much controlled as well. Constitutional: Denied any fatigue denied any fever. Cardio vascular: denied any chest pain, palpitations Gastrointestinal as mentioned in HPI Pulmonary: Denied any shortness of breath cough Neurologic denied any new focal deficits All inpatient medications were reviewed and appropriate changes in these medications as dictated in the interval history and assessment and plan. Objective - Vital Signs Vital signs: Vital Signs Temp 98.5 F 10/14/18 23:16 Pulse 82 10/14/18 23:16 Resp 18 10/14/18 23:16 BP 166/79 10/14/18 23:16 Pulse Ox 97 10/14/18 23:16 Intake & Output 10/14/18 10/14/18 10/15/18 06:59 18:59 06:59 Intake Total 780 Output Total 70 110 40 Balance -70 -110 740 Intake: Oral 780 Output: Drainage 70 110 40 Right Abdomen 70 110 40 Other: # Voids 1 1 # Bowel Movements 1 1 - Exam PHYSICAL EXAMINATION: GENERAL: The patient is alert and oriented x3, not in any acute distress. Well developed, well nourished. HEENT: Pupils are round and equally reacting to light. EOMI. No scleral icterus. No conjunctival pallor. Normocephalic, atraumatic. No pharyngeal erythema. No thyromegaly. CARDIOVASCULAR: S1 and S2 present. No murmurs, rubs, or gallops. PULMONARY: Chest is clear to auscultation, no wheezing or crackles. ABDOMEN: Abdominal pain with tenderness over the surgical sites. No guarding no rigidity. Bowel sounds normal. MUSCULOSKELETAL: No joint swelling or deformity. EXTREMITIES: No cyanosis, clubbing, or pedal edema. NEUROLOGICAL: Gross neurological examination did not reveal any focal deficits. SKIN: No rashes. - Labs CBC & Chem 7: 10/14/18 00:00 10/14/18 06:43 Labs: Abnormal Lab Results - Last 24 Hours (Table) 10/14/18 10/14/18 Range/Units 00:00 06:43 WBC 11.8 H (3.8-10.6) k/uL Hgb 11.0 L (11.4-16.0) gm/dL Hct 33.2 L (34.0-46.0) % Neutrophils # 8.9 H (1.3-7.7) k/uL Carbon Dioxide 21 L (22-30) mmol/L Creatinine 0.45 L (0.52-1.04) mg/dL Calcium 8.3 L (8.4-10.2) mg/dL AST 41 H (14-36) U/L ALT 63 H (9-52) U/L Total Protein 6.0 L (6.3-8.2) g/dL Albumin 2.8 L (3.5-5.0) g/dL Assessment and Plan Assessment: -Acute Gallstone pancreatitis: Pancreatitis improved patient does have cholecystitis as well underwent cholecystectomy with a LINCOLN drain in place -acute cholecystitis status post cholecystectomy and patient is on Unasyn and IV fluids at this time -Leukocytosis secondary to acute pancreatitis and acute cholecystitis -Elevated liver enzymes, improving now -Hypertension -anxiety and depression Patient will need pharmacologic GI and DVT prophylaxis Time with Patient: Greater than 30
[2018-10-15] MEDS: 0.9% NACL WITH KCL 20 MEQ/L 1,000 ML IV SCH (01:58)
[2018-10-15] MEDS: METOCLOPRAMIDE 5 MG/ML 2 ML VIAL IVP SCH ×2 (05:45→12:04)
--- NOTE | 2018-10-15 07:15 | P.PN ---
Subjective Progress Note Date: 10/15/18 Patient seen and examined at bedside. States she is feeling well. Denies nausea or vomiting. Tolerating diet. Having bowel function. Objective - Vital Signs Vital signs: Vital Signs Temp 98.5 F 10/14/18 23:16 Pulse 82 10/14/18 23:16 Resp 18 10/14/18 23:16 BP 166/79 10/14/18 23:16 Pulse Ox 97 10/14/18 23:16 Intake & Output 10/14/18 10/15/18 10/15/18 18:59 06:59 18:59 Intake Total 1020 Output Total 110 100 Balance -110 920 Intake: Oral 1020 Output: Drainage 110 100 Right Abdomen 110 100 Other: # Voids 1 # Bowel Movements 1 - Constitutional General appearance: Present: cooperative, no acute distress - EENT Eyes: Present: PERRLA - Respiratory Details: No difficulty with respiration - Gastrointestinal Gastrointestinal Comment(s): Soft, appropriate tenderness, nondistended, no rebound, no guarding, incision sites are clean, dry and intact, LINCOLN drain in place - Psychiatric Psychiatric: Present: A&O x's 3 - Labs CBC & Chem 7: 10/14/18 00:00 10/14/18 06:43 Labs: Abnormal Lab Results - Last 24 Hours (Table) 10/14/18 Range/Units 06:43 Carbon Dioxide 21 L (22-30) mmol/L Creatinine 0.45 L (0.52-1.04) mg/dL Calcium 8.3 L (8.4-10.2) mg/dL AST 41 H (14-36) U/L ALT 63 H (9-52) U/L Total Protein 6.0 L (6.3-8.2) g/dL Albumin 2.8 L (3.5-5.0) g/dL Assessment and Plan (1) Acute pancreatitis Narrative/Plan: 53-year-old female with gallstone pancreatitis, POD #4 from lap audie - Patient's ileus appears to be resolving. Continue soft diet - Replace electrolytes as necessary - Pain control - Discontinue LINCOLN drain today - Increase activity as tolerated - Surgically stable for discharge today - Follow up with me in approximately 10 days Current Visit: Yes Status: Acute Code(s): K85.90 - ACUTE PANCREATITIS WITHOUT NECROSIS OR INFECTION, UNSP SNOMED Code(s): 336026485
[2018-10-15 07:49] LABS: Basophils # (A) 0.1 k/uL (0-0.2); Basophils % (A) 1 %; Eosinophils # (A) 0.2 k/uL (0-0.7); Eosinophils % (A) 2 %; HCT 34.3 % (34.0-46.0); HGB 11.2 gm/dL (11.4-16.0); Lymphocytes # (A) 1.8 k/uL (1.0-4.8); Lymphocytes % (A) 14 %; MCH 26.7 pg (25.0-35.0); MCHC 32.7 g/dL (31.0-37.0); MCV 81.6 fL (80.0-100.0); Mean Platelet Volume 7.1; Monocytes # (A) 0.6 k/uL (0-1.0); Monocytes % (A) 5 %; Neutrophils # (A) 9.9 k/uL (1.3-7.7); Neutrophils % (A) 77 %; Platelet Count 471 k/uL (150-450); RDW 14.6 % (11.5-15.5); WBC 12.8 k/uL (3.8-10.6)
[2018-10-15 08:10] LABS: ALT 66 U/L (9-52); AST 30 U/L (14-36); Alkaline Phosphatase 90 U/L (38-126); Anion Gap 10 mmol/L; Blood Urea Nitrogen 5 mg/dL (7-17); Calcium 8.6 mg/dL (8.4-10.2); Carbon Dioxide 25 mmol/L (22-30); Chloride 103 mmol/L (98-107); Glucose 94 mg/dL (74-99); Sodium 138 mmol/L (137-145); Total Bilirubin 0.7 mg/dL (0.2-1.3); Total Protein 6.3 g/dL (6.3-8.2)
[2018-10-15 09:07] VITALS: RESP 20
[2018-10-15] MEDS: AMPICILLIN-SULBACTAM 3 GM in SODIUM CHLORIDE 0.9% 100 ML IVPB SCH (10:27)
[2018-10-15] MEDS: HEPARIN SODIUM,PORCINE 5,000 UNIT/ML 1 ML VIAL SQ SCH (10:33)
[2018-10-15] MEDS: PANTOPRAZOLE 40 MG TABLET PO SCH (10:34)
[2018-10-15] MEDS: amLODIPine 5 MG TAB PO SCH (10:34)
[2018-10-15 12:38] VITALS: BP 181/79; PULSE 61; TEMP 98.1
== END 2018-10-15 14:52 | disposition home or self-care (01) | DRG 417 ==
LOC: EC 03:17 → 4MS4W 06:29 → 6PED 10-10 13:07
PROVIDERS: ADMIT Hospitalist; ATTEND Hospitalist
PROC: 0FT44ZZ Resection of Gallbladder, Percutaneous Endoscopic Approach (ICD-10-PCS; principal; 2018-10-11 09:00)
DX: K80.00 Calculus of gallbladder with acute cholecystitis without obstruction (principal); K85.10 Biliary acute pancreatitis without necrosis or infection; R18.8 Other ascites; K56.7 Ileus, unspecified; Z68.43 Body mass index [BMI] 50.0-59.9, adult; I10 Essential (primary) hypertension; F41.9 Anxiety disorder, unspecified; F32.9 Major depressive disorder, single episode, unspecified; R74.8 Abnormal levels of other serum enzymes; E66.9 Obesity, unspecified; Z71.3 Dietary counseling and surveillance; G43.909 Migraine, unspecified, not intractable, without status migrainosus; Z79.82 Long term (current) use of aspirin; Z79.899 Other long term (current) drug therapy; Z88.1 Allergy status to other antibiotic agents; Z82.49 Family history of ischemic heart disease and other diseases of the circulatory system; Z80.0 Family history of malignant neoplasm of digestive organs
CPT/HCPCS: 36415; 74018; 74160; 74177; 76705; 80053; 81001; 81025; 82150; 83690; 85025; 85027; 88304; 96361; 96374; 96375; 96376; 99285

== ENCOUNTER → 2019-04-11 | Outpatient (CLI) | payer BC ==
[2019-04-11 11:23] LABS: Basophils # (A) 0.1 k/uL (0-0.2); Basophils % (A) 1 %; Eosinophils # (A) 0.2 k/uL (0-0.7); Eosinophils % (A) 2 %; HGB 14.5 gm/dL (11.4-16.0); Lymphocytes # (A) 2.9 k/uL (1.0-4.8); Lymphocytes % (A) 32 %; MCH 28.2 pg (25.0-35.0); MCHC 33.8 g/dL (31.0-37.0); MCV 83.6 fL (80.0-100.0); Mean Platelet Volume 6.1; Monocytes # (A) 0.4 k/uL (0-1.0); Monocytes % (A) 4 %; Neutrophils # (A) 5.4 k/uL (1.3-7.7); Neutrophils % (A) 59 %; Platelet Count 377 k/uL (150-450); RBC 5.14 m/uL (3.80-5.40); WBC 9.1 k/uL (3.8-10.6)
[2019-04-11 17:36] LABS: African American GFR (CKD) 115.5 (60.0-200.0); Albumin 4.3 g/dL (3.80-4.90); Albumin/Globulin Ratio 1.39 (1.60-3.17); Anion Gap 7.1 mmol/L (4.00-12.00); BUN/Creat Ratio 17.14 Ratio (12.00-20.00); Calcium 9.5 mg/dL (8.7-10.3); Carbon Dioxide 22.9 mmol/L (21.6-31.8); Chol/HDL Ratio 3.46; Globulin 3.1 g/dL (1.6-3.3); LDL Cholesterol,Calculated 101.6 mg/dL (0.0-131.0); Potassium 4.8 mmol/L (3.5-5.5); Total Bilirubin 0.4 mg/dL (0.3-1.2); Total Protein 7.4 g/dL (6.2-8.2); VLDL Calculation 16.4 mg/dL (5.00-40.00)
[2019-04-11 20:36] LABS: Hemoglobin A1C 5.7 % (4.0-6.0)
[2019-04-12 14:39] LABS: Estrogens Total 247 pg/mL
== END | disposition home or self-care (01) ==
LOC: LABWHC1 10:30
PROVIDERS: ATTEND Family Medicine
DX: Z00.00 Encounter for general adult medical examination without abnormal findings (principal); E89.41 Symptomatic postprocedural ovarian failure
CPT/HCPCS: 36415; 80053; 80061; 82040; 82672; 83036; 84144; 84270; 84403; 84443; 85025

== ENCOUNTER → 2020-04-02 | Outpatient (CLI) | payer BC ==
--- NOTE | 2020-04-02 11:42 | MM ---
Reason for exam: clinical finding. Last mammogram was performed 2 years and 6 months ago. History: Patient is postmenopausal. Physical Findings: Nurse Summary: 2cm nodule in the right breast at 10-11 o'clock, superficial skin infection (nurse mj). MG 3D Diag Mammo W/Cad ALEJANDRO Bilateral CC, MLO, and XCCL view(s) were taken. Prior study comparison: October 08, 2017, bilateral MG screening mammo w CAD. September 08, 2016, bilateral MG screening mammo w CAD. There are scattered fibroglandular densities. These results were verbally communicated with the patient and result sheet given to the patient on 04/02/20. ASSESSMENT: Benign, BI-RAD 2 RECOMMENDATION: Routine screening mammogram of both breasts in 1 year. Manage patient on a clinical basis.
== END | disposition home or self-care (01) ==
LOC: RADMAMWWP 09:44
PROVIDERS: ATTEND Family Medicine
DX: N63.0 Unspecified lump in unspecified breast (principal)
CPT/HCPCS: 77062; 77066

== ENCOUNTER → 2020-09-07 | Outpatient (CLI) | payer BC ==
[2020-09-07 19:25] LABS: Basophils # (A) 0.06 X 10*3/uL (0.00-0.10); Basophils % (A) 0.5 %; Eosinophils # (A) 0.16 X 10*3/uL (0.04-0.35); Eosinophils % (A) 1.5 %; HCT 46.5 % (37.2-46.3); Lymphocytes # (A) 4.22 X 10*3/uL (0.90-5.00); Lymphocytes % (A) 38.6 %; MCH 26.8 pg (27.0-32.0); MCHC 32.3 g/dL (32.0-37.0); Mean Platelet Volume 10.6 fL (9.5-12.2); Monocytes # (A) 0.86 X 10*3/uL (0.20-1.00); Monocytes % (A) 7.9 %; Neutrophils # (A) 5.59 X 10*3/uL (1.80-7.70); Neutrophils % (A) 51.1 %; Platelet Count 453 X 10*3/uL (140-440); RDW 14.5 % (11.5-14.5); WBC 10.93 X 10*3/uL (4.50-10.00)
[2020-09-08 01:46] LABS: African American GFR (CKD) 97.6 (60.0-200.0); Non-African American GFR(CKD) 84.2 (60.0-200.0)
== END | disposition home or self-care (01) ==
LOC: LABWHC1 13:59
PROVIDERS: ATTEND Physician Assistant Medical
DX: L95.8 Other vasculitis limited to the skin (principal)
CPT/HCPCS: 36415; 82565; 84450; 84460; 84520; 85025; 86038

== ENCOUNTER → 2021-04-29 | Outpatient (CLI) | payer BC ==
--- NOTE | 2021-04-29 11:45 | US ---
EXAMINATION TYPE: US abdomen complete DATE OF EXAM: 04/29/2021 COMPARISON: Prior ultrasound 10/08/2018, CT 10/11/2018 CLINICAL HISTORY: R10.12 Left Upper Quad Pain. EXAM MEASUREMENTS: Liver Length: 19.0 cm Gallbladder Wall: Surgically absent CBD: 0.4 cm Spleen: 10.1 cm Right Kidney: 10.5 x 4.5 x 4.7 cm Left Kidney: 11.9 x 4.7 x 5.1 cm Morbidly obese patient with extensive midline bowel gas, study very limited. Pancreas: Obscured by bowel gas Liver: unable to penetrate, severe fatty infiltrate suspected, enlarged, limited visualization Gallbladder: Surgically absent Evidence for sonographic Smith's sign: No CBD: wnl Spleen: wnl Right Kidney: No hydronephrosis or masses seen, limited views Left Kidney: No hydronephrosis or masses seen, limited views Upper IVC: not well seen Abd Aorta: Mostly obscured by overlying bowel gas, portion visualized wnl Preliminary results given to Radha at Dr.s office. There is no ascites. IMPRESSION: Findings suggest hepatic steatosis similar to prior exam, there is hepatomegaly, limited exam
== END | disposition home or self-care (01) ==
LOC: RADUSWWP 10:32
PROVIDERS: ATTEND Family Medicine
DX: K76.89 Other specified diseases of liver (principal); R16.0 Hepatomegaly, not elsewhere classified
CPT/HCPCS: 76700

== ENCOUNTER → 2021-07-15 | Outpatient (CLI) | payer BC ==
[2021-07-15 18:56] LABS: Basophils # (A) 0.05 X 10*3/uL (0.00-0.10); Basophils % (A) 0.6 %; Eosinophils # (A) 0.17 X 10*3/uL (0.04-0.35); Eosinophils % (A) 1.9 %; HCT 44.2 % (37.2-46.3); HGB 14.3 g/dL (12.0-15.0); Lymphocytes # (A) 2.69 X 10*3/uL (0.90-5.00); Lymphocytes % (A) 30.3 %; MCH 26.7 pg (27.0-32.0); MCHC 32.4 g/dL (32.0-37.0); MCV 82.5 fL (80.0-97.0); Mean Platelet Volume 10.3 fL (9.5-12.2); Monocytes # (A) 0.57 X 10*3/uL (0.20-1.00); Monocytes % (A) 6.4 %; Neutrophils # (A) 5.38 X 10*3/uL (1.80-7.70); Neutrophils % (A) 60.5 %; Platelet Count 365 X 10*3/uL (140-440); RBC 5.36 X 10*6/uL (4.10-5.20); RDW 14.6 % (11.5-14.5); WBC 8.89 X 10*3/uL (4.50-10.00)
[2021-07-15 19:43] LABS: ALT 29 U/L (8-44); AST 24 U/L (13-35); African American GFR (CKD) 115.9 (60.0-200.0); Alkaline Phosphatase 70 U/L (41-126); Blood Urea Nitrogen 11.8 mg/dL (9.0-27.0); Calcium 9.4 mg/dL (8.7-10.3); Carbon Dioxide 22.8 mmol/L (20.0-27.5); Chloride 102 mmol/L (96-109); Chol/HDL Ratio 3.69 Ratio; Globulin 3.4 g/dL (1.6-3.3); Glucose 138 mg/dL (70-110); LDL Cholesterol,Calculated 103.9 mg/dL (0.0-131.0); Sodium 138 mmol/L (135-145); Total Protein 7.4 g/dL (6.2-8.2)
[2021-07-15 21:11] LABS: Rheumatoid Factor, Qnt <10 IU/mL (0-15)
[2021-07-15 22:45] LABS: Erythrocyte Sedimentation Rate 30 mm/Hr (0-30)
[2021-07-16 14:12] LABS: APTT 50 Sec(s) (<43); APTT 1:1 Mix 42 Sec(s) (<43); DRVVT 1:1 Mix 37 Sec(s) (<44); Dilute Russell Viper Venom 45 Sec(s) (<44)
== END | disposition home or self-care (01) ==
LOC: LABWHC1 12:16
PROVIDERS: ATTEND Nurse Practitioner Adult Health
DX: Z00.00 Encounter for general adult medical examination without abnormal findings (principal); I10 Essential (primary) hypertension; L95.9 Vasculitis limited to the skin, unspecified; Z13.1 Encounter for screening for diabetes mellitus
CPT/HCPCS: 36415; 80053; 80061; 83036; 84439; 84443; 85025; 85613; 85652; 85730; 85732; 86038; 86140; 86431

== ENCOUNTER → 2021-08-29 | Outpatient (CLI) | payer BC ==
--- NOTE | 2021-08-30 13:57 | MM ---
Reason for exam: screening (asymptomatic). Last mammogram was performed 1 year and 5 months ago. History: Patient is postmenopausal. Physical Findings: A clinical breast exam by your physician is recommended on an annual basis and results should be correlated with mammographic findings. MG Screening Mammo w CAD Bilateral CC and MLO view(s) were taken. Prior study comparison: April 02, 2020, bilateral MG 3d diag mammo w/cad ALEJANDRO. October 08, 2017, bilateral MG screening mammo w CAD. There are scattered fibroglandular densities. There is no discrete abnormality. No significant changes when compared with prior studies. ASSESSMENT: Negative, BI-RAD 1 RECOMMENDATION: Routine screening mammogram of both breasts in 1 year.
== END | disposition home or self-care (01) ==
LOC: RADMAMWWP 12:56
PROVIDERS: ATTEND Family Medicine
DX: Z12.31 Encounter for screening mammogram for malignant neoplasm of breast (principal); Z78.0 Asymptomatic menopausal state
CPT/HCPCS: 77067

== ENCOUNTER → 2023-09-22 | Outpatient (CLI) | payer BC ==
--- NOTE | 2023-09-25 08:48 | MM ---
Reason for Exam: Screening (asymptomatic). Last screening mammogram was performed 12 month(s) ago. Patient History: Menarche at age 14. First Full-Term at age 31. Postmenopausal. Patient has history of breast feeding. Risk Values: Kristi 5 year model risk: 1.4%. NCI Lifetime model risk: 8.9%. Prior Study Comparison: 04/02/2020 Bilateral Diagnostic Mammogram, [facility]. 08/29/2021 Bilateral Screening Mammogram, [facility]. 09/04/2022 Bilateral MG screening mammo w CAD, [facility]. Tissue Density: The breasts are almost entirely fatty. Findings: Analyzed By CAD. The pattern is symmetrical. Pattern is stable. No suspicious groups of microcalcifications, spiculated or lobular masses, architectural distortion or other secondary signs of malignancy are mammographically apparent. Overall Assessment: Negative, BI-RAD 1 Management: Screening Mammogram of both breasts in 1 year. A negative mammogram report should not preclude additional follow up of suspicious palpable abnormalities. Patient should continue monthly self breast exam. A clinical breast exam by your physician is recommended on an annual basis and results should be correlated with mammographic findings. Electronically signed and approved by: Marcus Garcia D.O. Radiologis
== END | disposition home or self-care (01) ==
LOC: RADMAMWWP 10:14
PROVIDERS: ATTEND Family Medicine
DX: Z12.31 Encounter for screening mammogram for malignant neoplasm of breast (principal); Z78.0 Asymptomatic menopausal state
CPT/HCPCS: 77067

== ENCOUNTER → 2024-07-15 | Outpatient (CLI) | payer BC ==
[2024-07-15 14:07] LABS: African American GFR (CKD) >90 (>60 ml/min/1.73 sqM); Blood Urea Nitrogen 10 mg/dL (7-17); Non-African American GFR(CKD) >90 (>60 ml/min/1.73 sqM)
--- NOTE | 2024-07-15 15:53 | CT ---
EXAMINATION TYPE: CT abdomen pelvis w con CT DLP: 1748 mGycm, Automated exposure control for dose reduction was used. DATE OF EXAM: 07/15/2024 3:17 PM COMPARISON: CT abdomen pelvis 10/11/2018, abdominal ultrasound 04/29/2021 CLINICAL INDICATION:Female, 59 years old with history of R10.11 ABD PAIN; RUQ pain, hx of pancreatiti s and GB removal. TECHNIQUE: Standard CT of the abdomen and pelvis following the administration of 100 cc of Isovue 3 00 IV contrast material and oral contrast. Coronal and sagittal reformats were performed. FINDINGS: LOWER CHEST: Marginal increase in size of right lower lobe 6.5 mm pulmonary nodule, previously 4.9 mm . New right middle lobe 4 mm pulmonary nodule. ABDOMEN LIVER: Diffusely hypoattenuating parenchyma. Enlarged liver measuring 21.4 cm in CC dimension. GALLBLADDER AND BILE DUCTS: The gallbladder is surgically absent. No biliary ductal dilatation. PANCREAS: Unremarkable. No pancreatic ductal dilatation or surrounding inflammatory changes. No surro unding organized fluid collections. No pancreatic parenchymal calcifications. SPLEEN: Unremarkable. ADRENAL GLANDS: Unremarkable. KIDNEYS AND URETERS: No evidence of hydronephrosis or renal calculus. The kidneys enhance symmetrical ly. Contrast is demonstrated within both collecting systems on the delayed phase. PELVIS BLADDER: Incompletely distended but grossly unremarkable. REPRODUCTIVE: Unremarkable. ABDOMEN & PELVIS STOMACH AND BOWEL: Stomach and duodenum are unremarkable. Enteric contrast reaches the distal small b owel. The appendix is within normal limits. No focal bowel wall thickening or surrounding inflammator y changes. No evidence of bowel obstruction. PERITONEUM: No evidence of pneumoperitoneum or free fluid. VASCULATURE: Mild atherosclerotic calcifications are present throughout the abdominal aorta and its b ranches. No evidence of aortic aneurysm. Pelvic phleboliths. MUSCULOSKELETAL: No acute osseous abnormalities. Grade 1 anterolisthesis of L4 on L5 without evidence of pars defects. LYMPH NODES: No gross evidence for lymphadenopathy. SOFT TISSUE/ABDOMINAL WALL: Diastases rectus with fat filled umbilical hernia. IMPRESSION: 1. No acute abdominal/pelvic process. 2. Hepatic steatosis with mild hepatomegaly. [facility], , 07/15/2024 3:51 PM
== END | disposition home or self-care (01) ==
LOC: RADCTMAIN 13:22
PROVIDERS: ATTEND Family Medicine
DX: R16.0 Hepatomegaly, not elsewhere classified (principal); Z87.19 Personal history of other diseases of the digestive system
CPT/HCPCS: 82565; 84520; 74177; 36415; Q9967

== ENCOUNTER → 2024-07-25 | Outpatient (CLI) | payer BC ==
--- NOTE | 2024-07-25 17:52 | CT ---
EXAMINATION TYPE: CT chest wo con DATE OF EXAM: 07/25/2024 2:26 PM COMPARISON: None. CLINICAL INDICATION: Female, 59 years old with history of R91.8 OTHER NONSPECIFIC ABNORMAL FINDING OF LUNG F, Lung Nodules. TECHNIQUE: Axial images were obtained at 5 mm thick sections. Reconstructed images are reviewed on [employer] computer in the coronal plane. Contrast used: mL of , (none if empty) Oral contrast used: (none if empty) CT DLP: 802 mGycm, Automated exposure control for dose reduction was used. FINDINGS: Portion of the thyroid visualized is normal. A couple of faint densities measuring 0.4 and 0.5 cm in the right lung base, series 4 image 39.r No enlarged mediastinal or hilar adenopathy is evident. The ascending aorta diameter at the level o f the main pulmonary artery is 3.2 cm. The main pulmonary artery diameter at the bifurcation is 2.7 cm. Mild coronary artery calcification is present. Limited CT sections are obtained through the upper abdomen. Mild fatty change of the liver is present . IMPRESSION: 1. Couple small right basilar densities. Follow-up CT in 6 months is recommended. 2. Fatty infiltration of the liver. [facility], , 07/25/2024 5:49 PM
== END | disposition home or self-care (01) ==
LOC: RADCTMAIN 13:56
PROVIDERS: ATTEND Family Medicine
DX: R91.8 Other nonspecific abnormal finding of lung field (principal); K76.0 Fatty (change of) liver, not elsewhere classified
CPT/HCPCS: 71250

== ENCOUNTER → 2024-10-17 | Outpatient (CLI) | payer BC ==
--- NOTE | 2024-10-17 12:07 | MM ---
Reason for Exam: Screening (asymptomatic). Last mammogram was performed 1 year(s) and 1 month(s) ago. Patient History: Menarche at age 14. First Full-Term at age 31. Postmenopausal. Patient has history of breast feeding. Risk Values: Kristi 5 year model risk: 1.4%. NCI Lifetime model risk: 8.7%. Prior Study Comparison: 08/29/2021 Bilateral Screening Mammogram, [facility]. 09/04/2022 Bilateral MG screening mammo w CAD, [facility]. 09/22/2023 Bilateral MG screening mammo w CAD, [facility]. Tissue Density: There are scattered areas of fibroglandular density. Findings: Analyzed By CAD. There is no suspicious group of microcalcifications or new suspicious mass in either breast. Overall Assessment: Negative, BI-RAD 1 Management: Screening Mammogram of both breasts in 1 year. . Patient should continue monthly self-breast exams. A clinical breast exam by your physician is recommended on an annual basis. This exam should not preclude additional follow-up of suspicious palpable abnormalities. Note on Kristi scores and lifetime risk: 1. A Kristi score greater than 3% is considered moderate risk. If this is the case, consider specialist referral to assess eligibility for a risk reducing agent. 2. If overall lifetime risk for the development of breast cancer is 20% or higher, the patient may qualify for future screening with alternating mammogram and breast MRI. [facility], , 10/17/2024 12:03 PM. Electronically signed and approved by: Dillon Anderson M.D. Radiologis
== END | disposition home or self-care (01) ==
LOC: RADMAMWWP 10:48
PROVIDERS: ATTEND Family Medicine
DX: Z12.31 Encounter for screening mammogram for malignant neoplasm of breast (principal); R92.323 Mammographic fibroglandular density, bilateral breasts; Z78.0 Asymptomatic menopausal state
CPT/HCPCS: 77067